=== PATIENT | male | born 1960 | race Caucasian/White ===

== ENCOUNTER → 2020-07-07 10:38 | Outpatient (BNVA) | payer BC, SELFPAY | PROVIDERS: Visit Provider Orthopaedic Surgery | DX: M17.12 Unilateral primary osteoarthritis, left knee (principal) | CPT/HCPCS: 20610; J1040 ==

== ENCOUNTER → 2020-07-21 10:44 | Outpatient (BNVA) | payer BC, SELFPAY | PROVIDERS: PCP Internal Medicine; Visit Provider Orthopaedic Surgery | DX: M19.011 Primary osteoarthritis, right shoulder (principal); M17.11 Unilateral primary osteoarthritis, right knee | CPT/HCPCS: 20610; J1040 ==

== ENCOUNTER 2020-09-28 07:04 | Outpatient (REF) | payer BC, SELFPAY ==
[2020-09-28 11:24] LABS: MANUAL DIFF FLAG NO
[2020-09-28 11:42] LABS: Basophils Percent Auto 0.3 % (0-2); Eosinophils Absolute Auto 0.1 X10*3/uL (0.0-0.4); Eosinophils Percent Auto 1.7 % (0-4); Hematocrit 40.5 % (42-52); Hemoglobin 13.7 g/dl (14.0-18.0); Imm Gran Abs Auto 0.01 X10*3/uL (0.00-0.03); Imm Gran Pct Auto 0.3 % (0.0-0.4); Lymphocytes Absolute Auto 0.8 X10*3/uL (1.2-4.9); Lymphocytes Percent Auto 22.1 % (20-40); Mean Corpuscular HGB Conc 33.8 g/dl (31.0-36.0); Mean Corpuscular Hemoglobin 32.8 pg (27.0-33.0); Mean Corpuscular Volume 96.9 fL (80-98); Mean Platelet Volume 9.6 fL (9.4-12.4); Monocytes Absolute Auto 0.6 X10*3/uL (0.1-1.2); Neutrophils Absolute Auto 2.1 X10*3/uL (2.0-8.3); Neutrophils Percent Auto 58.6 % (45-73); Platelet Count 166 X10*3/uL (160-400); Red Blood Count 4.18 X10*6/uL (4.60-5.80); Red Cell Distribution Width 12.9 % (11.0-16.0); White Blood Count 3.5 X10*3/uL (4.8-10.8)
[2020-09-28 12:01] LABS: Alanine Aminotransferase 90 U/L (0-40); Albumin Level 4.5 g/dL (3.5-5.0); Alkaline Phosphatase 100 U/L (39-117); Anion Gap 18 (12-20); Aspartate Amino Transferase 89 U/L (5-37); Bilirubin Total 0.8 mg/dL (0.0-1.0); Blood Urea Nitrogen 13 mg/dL (9-16); Calcium 9.7 mg/dL (8.4-10.2); Carbon Dioxide 28 mmol/L (22-29); Chloride 94 mmol/L (96-108); Cholesterol 196 mg/dL; Estimated Glomerular Filt Rate > 60; Glucose Fasting 85 mg/dL (60-99); HDL Cholesterol 113 mg/dL; LDL Cholesterol Calculated 68 mg/dl; Potassium 3.6 mmol/L (3.3-5.1); Sodium 136 mmol/L (135-145); Total Protein 7.4 g/dL (6.5-8.0); Triglycerides 77 mg/dL
== END 2020-09-28 07:05 | disposition home or self-care (01) ==
LOC: HO.HMGCLDS 07:04
PROVIDERS: PCP Internal Medicine; Visit Provider Internal Medicine
DX: I10 Essential (primary) hypertension (principal); E78.00 Pure hypercholesterolemia, unspecified
CPT/HCPCS: 36415; 80053; 80061; 85025

== ENCOUNTER → 2020-10-13 15:19 | Outpatient (BNVA) | payer BC, SELFPAY | PROVIDERS: PCP Internal Medicine; Visit Provider Internal Medicine ==

== ENCOUNTER 2021-07-13 06:50 | Outpatient (REF) | payer BC, SELFPAY ==
[2021-07-13 11:21] LABS: MANUAL DIFF FLAG NO
[2021-07-13 11:32] LABS: Basophils Percent Auto 0.6 % (0-2); Eosinophils Absolute Auto 0.2 X10*3/uL (0.0-0.4); Eosinophils Percent Auto 3.2 % (0-4); Hematocrit 44.2 % (42.0-52.0); Hemoglobin 15.1 g/dl (14.0-18.0); Imm Gran Abs Auto 0.01 X10*3/uL (0.00-0.03); Imm Gran Pct Auto 0.2 % (0.0-0.4); Lymphocytes Absolute Auto 1.4 X10*3/uL (1.2-4.9); Lymphocytes Percent Auto 25.8 % (20-40); Mean Corpuscular HGB Conc 34.2 g/dl (31.0-36.0); Mean Corpuscular Volume 96.5 fL (80.0-98.0); Mean Platelet Volume 9.3 fL (9.4-12.4); Monocytes Absolute Auto 0.6 X10*3/uL (0.1-1.2); Monocytes Percent Auto 11.6 % (2-11); Neutrophils Absolute Auto 3.1 x10*3/uL (2.0-8.3); Neutrophils Percent Auto 58.6 % (45-73); Platelet Count 219 X10*3/uL (160-400); Red Blood Count 4.58 X10*6/uL (4.60-5.80); Red Cell Distribution Width 12.2 % (11.0-16.0); White Blood Count 5.3 X10*3/uL (4.8-10.8)
[2021-07-13 11:55] LABS: Alanine Aminotransferase 40 U/L (0-40); Albumin Level 4.7 g/dL (3.5-5.0); Alkaline Phosphatase 71 U/L (39-117); Anion Gap 17 (12-20); Aspartate Amino Transferase 38 U/L (5-37); Blood Urea Nitrogen 12 mg/dL (9-16); Calcium 10.2 mg/dL (8.4-10.2); Carbon Dioxide 29 mmol/L (22-29); Chloride 93 mmol/L (96-108); Cholesterol 235 mg/dL; Estimated Glomerular Filt Rate > 60; Glucose Fasting 93 mg/dL (60-99); HDL Cholesterol 120 mg/dL; LDL Cholesterol Calculated 92 mg/dl; Potassium 4.1 mmol/L (3.3-5.1); Sodium 135 mmol/L (135-145); Total Protein 7.8 g/dL (6.5-8.0); Triglycerides 116 mg/dL
[2021-07-13 12:16] LABS: PSA,Total (Free>4and<10) 1.83 ng/mL (0.00-4.00); Vitamin D 25-OH Total 22.7 ng/mL (>30)
== END 2021-07-13 06:51 | disposition home or self-care (01) ==
LOC: HO.HMGCLDS 06:50
PROVIDERS: PCP Internal Medicine; Visit Provider Internal Medicine
DX: Z00.00 Encounter for general adult medical examination without abnormal findings (principal); I10 Essential (primary) hypertension; E78.00 Pure hypercholesterolemia, unspecified; J45.30 Mild persistent asthma, uncomplicated; R35.0 Frequency of micturition
CPT/HCPCS: 36415; 80053; 80061; 82306; 84153; 84443; 85025

== ENCOUNTER → 2021-07-28 10:47 | Outpatient (BNVA) | payer BC, SELFPAY | PROVIDERS: PCP Internal Medicine; Visit Provider Internal Medicine ==

== ENCOUNTER 2021-08-02 11:47 | Outpatient (REF) | payer BC, SELFPAY ==
[2021-08-02 13:59] LABS: Appearance Urine CLEAR; Color Urine YELLOW; Glucose Urine UA NEG (NEG); Leukocyte Esterase Urine NEG (NEG); Nitrite Urine NEG (NEG); Specific Gravity - Urine <= 1.005 (1.005-1.025); Urine Blood NEG (NEG); Urine Ketones NEG (NEG); Urine Protein NEG (NEG-TRACE)
[2021-08-02 14:12] LABS: RBC Urine 0 /HPF (0); WBC Urine 0 /HPF (0-4)
== END 2021-08-02 11:48 | disposition home or self-care (01) ==
LOC: HO.HMGCLNP 11:47
PROVIDERS: PCP Internal Medicine; Visit Provider Internal Medicine
DX: Z00.00 Encounter for general adult medical examination without abnormal findings (principal); R35.0 Frequency of micturition; J45.30 Mild persistent asthma, uncomplicated; I10 Essential (primary) hypertension; E78.00 Pure hypercholesterolemia, unspecified
CPT/HCPCS: 81001

== ENCOUNTER 2021-08-10 09:18 | Outpatient (REF) | payer BC, SELFPAY ==
--- NOTE | 2021-08-10 11:42 | MHC.AU.ANO ---
Adult Audiological Evaluation Date of Visit: 08/10/21 Reason for Appointment: Patient has been noticing gradually increasing hearing difficulty. He has trouble understanding speech in the presence of background noise or if the person talking is not close. He was first told he had hearing loss around [address] Yeung's office. He feels the hearing loss is now starting to impact his daily life. He also experiences intermittent, but frequent, tinnitus. History of occupational noise exposure. Does patient feel they have a hearing loss?: Yes If Yes, Which Ear?: Both Ears Has hearing been tested previously?: Yes Previous Hearing Test Results: Approximately [address] Yeung's office. Results were not available for immediate review. Ear History: Ear Deformity: None Reported Recent Ear Drainage: None Reported Recent Ear Pain: None Reported Family History of Hearing Loss?: Yes: Father Recent Ear Infections: None Reported Ear Infections in Childhood: None Reported History of Ear Wax Buildup: None Reported Previous Ear Surgery: None Reported Bothersome Tinnitus/Ringing/Noises in Ears: Both Ears Ear used on the phone: Left Ear Blocked/Full Sensation in Ear(s): None Reported History of occupational noise exposure?: Yes: Spout Tender History: No Medical History: Medical History: Asthma, COPD, Osteoarthritis, Seasonal Allergies, Hypertension Otoscopy: Right Ear: Unremarkable Left Ear: Unremarkable Tympanometry: Right Ear: Could Not Obtain Seal Left Ear: Could Not Obtain Seal Hearing Evaluation: Transducer(s) Used: Insert Earphones Method: Conventional Audiometry Stimuli Used: Pure Tones Right Ear: Description of Hearing: Mild rising to normal and sloping to moderately-severe sensorineural hearing loss Left Ear: Description of Hearing: Mild rising to normal and sloping to moderately-severe sensorineural hearing loss Speech Recognition Threshold (SRT): Method Used: Recorded Lists Stimuli Used: Spondee Words Right Ear: 20 dBHL Left Ear: 20 dBHL Word Discrimination: Method: Recorded Lists Word Lists Used: W-22 Right Ear: 96% at 65 dBHL Left Ear: 96% at 65 dBHL Most Comfortable Level (MCL): Right Ear: 65 dBHL Left Ear: 65 dBHL QuickSIN: Tested binaurally at 65 dBHL: Score of 8 dB SNR Loss, which suggests moderately-elevated difficulty understanding speech in noise. Recommendations: Audiological re-evaluation in one year. A brief hearing aid demo was performed in-office with a pair of ReSound One RICs. Patient could notice an improvement in speech understanding and clarity with the instruments. He feels he may be ready for hearing aids. Patient plans to first contact his insurance to determine if there is a hearing aid benefit, and if so, inquire about participating clinics. If his insurance does not have a hearing aid benefit, he is encouraged to contact [facility] ([facility]) to determine if he may qualify for assistance. Diagnosis: Primary Diagnosis: H90.3 Bilateral Sensorineural Hearing Loss Signature: Provider: Anusha Issa, CCC-A
== END 2021-08-10 09:19 | disposition home or self-care (01) ==
LOC: HO.SH 09:18
PROVIDERS: Visit Provider Internal Medicine
DX: H90.3 Sensorineural hearing loss, bilateral (principal)
CPT/HCPCS: 92557; 92567

== ENCOUNTER 2021-08-16 11:35 | Outpatient (REF) | payer BC, SELFPAY ==
--- NOTE | ~2021-08-16 | XR_ITS ---
EXAMINATION: XR SHOULDER, LEFT CLINICAL INFORMATION: Left shoulder pain, limited range of motion. COMPARISON: Left shoulder radiographs dated 09/28/2010. TECHNIQUE: AP external rotation, Grashey, scapular Y, and axillary views of the left shoulder. FINDINGS: Mild to moderate left glenohumeral and acromioclavicular degenerative joint changes are seen. There is no acute fracture or dislocation. The left ribs are intact. The soft tissues are unremarkable. XR/XR shoulder LT min 2V IMPRESSION: Mild to moderate left shoulder degenerative joint changes. No acute fracture. This represents interval worsening from the 2011 study.
--- NOTE | ~2021-08-16 | XR_ITS ---
EXAMINATION: XR SHOULDER, RIGHT CLINICAL INFORMATION: Right shoulder pain, limited range of motion COMPARISON: 07/16/2019 right shoulder radiographs. TECHNIQUE: AP external rotation, Grashey, scapular Y, and axillary views of the right shoulder. FINDINGS: Mild to moderate right glenohumeral and acromioclavicular degenerative joint changes are seen. There is no acute fracture or dislocation. The soft tissues are unremarkable. XR/XR shoulder RT min 2V IMPRESSION: Mild to moderate right shoulder degenerative joint changes without acute abnormality. These findings are similar to the 2019 study.
== END 2021-08-16 11:36 | disposition home or self-care (01) ==
LOC: HO.HMGCX 11:35
PROVIDERS: PCP Internal Medicine; Visit Provider Physical Medicine & Rehabilitation
DX: M25.511 Pain in right shoulder (principal); M25.512 Pain in left shoulder
CPT/HCPCS: 73030

== ENCOUNTER → 2021-09-28 09:28 | Outpatient (BNVA) | payer BC, SELFPAY | PROVIDERS: PCP Internal Medicine; Visit Provider Internal Medicine ==

== ENCOUNTER → 2022-12-11 15:53 | Outpatient (BNVA) | payer BC, SELFPAY | PROVIDERS: PCP Internal Medicine; Visit Provider Internal Medicine ==

== ENCOUNTER 2023-03-31 10:05 | Emergency (ER) | payer BC, SELFPAY ==
--- NOTE | ~2023-03-31 | XR_ITS ---
EXAMINATION:XR ankle RT min 3V CLINICAL INFORMATION: Pain COMPARISON: None TECHNIQUE: AP, lateral, and mortise views of the ankle. FINDINGS: There is narrowing of joint space medially along with sclerotic changes of articular surfaces suggest degenerative osteoarthritis. No fracture. There is soft tissue swelling especially around the lateral malleolus. There is inferior calcaneal spur. Degenerative osteoarthritis of the subtalar joint. Heavy vascular calcification. Posterior tibial artery. XR/XR ankle RT min 3V IMPRESSION: Degenerative osteoarthritis. No fracture or dislocation. Soft tissue swelling. Small inferior calcaneal spur. Vascular calcifications.
[2023-03-31 10:06] VITALS: BP 151/94; PULSE 88; RESP 18; TEMP 36.6; O2SAT 97; BMI 33.9
--- NOTE | 2023-03-31 11:24 | ED_ITS ---
HPI - General Adult General Chief complaint: Extremity Injury, Lower Stated complaint: R ankle pain Time Seen by Provider: 03/31/23 10:46 Source: patient Mode of arrival: ambulatory Limitations: no limitations History of Present Illness HPI narrative: Patient is a 62-year-old male presenting to the emergency department with 9-10 months of right ankle pain swelling. Patient reports that he was ambulating 1 day when he felt a popping sensation and felt the pain and swelling at that time. He denies any fall or other trauma. He denies any recent worsening of his pain or swelling. States that he has an upcoming appointment with orthopedics and they a told him that he required an x-ray prior to his appointment. He denies any numbness or tingling to foot. States pain is worst at the end of the day after work. MD complaint: Right ankle pain Onset (ago): month(s) Location: lower extremity Radiation: non-radiation Severity: moderate Quality: aching Pain Consistency: constant and colicky Relieving factors: rest Exacerbating factors: movement Associated symptoms: denies other symptoms Treatments prior to arrival: NSAID and cold therapy Related Data Home Medications Medication Instructions Recorded Confirmed allopurinol 300 mg tablet 150 mg PO DAILY 07/06/20 atorvastatin 10 mg tablet 10 mg PO BEDTIME 07/06/20 losartan 100 mg tablet 100 mg PO DAILY 07/06/20 verapamil 180 mg 24 hr 180 mg PO DAILY 07/06/20 capsule,extended release hydrochlorothiazide 25 mg tablet 25 mg PO DAILY 10/13/20 brimonidine 0.15 % eye drops 0 drp ophthalmic (eye) 07/28/21 ibuprofen 800 mg tablet 800 mg PO BID PRN 07/28/21 oxycodone 5 mg tablet 5 mg PO BID PRN 07/28/21 Previous Rx's Medication Instructions Recorded albuterol sulfate 90 mcg/actuation 2 puff inhalation Q4-6H PRN 09/16/21 aerosol inhaler (ProAir HFA) shortness of breath or wheezing #1 ea mometasone-formoterol HFA 100 2 puff PO BID for asthma #13 grams 01/04/23 mcg-5 mcg/actuation aerosol inhaler (Dulera) montelukast 10 mg tablet 10 mg PO DAILY #30 tabs 01/04/23 Allergies Allergy/AdvReac Type Severity Reaction Status Date / Time penicillin V Allergy Unknown unknown Verified 03/31/23 10:11 adhesive Allergy Unknown rash Uncoded 12/11/22 16:16 LATEX Allergy Unknown severe rash Uncoded 12/11/22 16:16 Review of Systems Review of Systems: As per HPI Yes all other systems are reviewed and are negative Constitutional: Constitutional: Reports as per HPI [facility] Past Medical History Medical History Asthma COPD (chronic obstructive pulmonary disease) CPAP (continuous positive airway pressure) dependence Hypertension Obesity (BMI 30.0-34.9) Obstructive sleep apnea MIGUEL on CPAP Primary osteoarthritis of right knee Primary osteoarthritis of right shoulder Rotator cuff impingement syndrome of right shoulder Varicose vein of leg Family History Family History Mother No problems noted. Father No problems noted. Social History Social History Patient Tobacco Use Status: Former Tobacco user Advance Directives: No Advance Directives Information Provided: No Current occupational status: employed Current occupation: Client Support Analyst - Right Handed Physical Exam ED Vital Signs: Vital Signs - 24 hr 03/31/23 10:06 Temperature 97.8 F Pulse Rate 88 Respiratory Rate 18 Blood Pressure 151/94 H Pulse Oximetry 97 Oxygen Delivery Method Room Air BMI result Body Mass Index 33.9 Vital signs have been reviewed and appear to be correct. Blood pressure elevated. Heart rate normal. Respiratory rate normal. Temperature normal. Oxygen saturation normal. Const General: cooperative, healthy appearing and no acute distress Orientation/consciousness: oriented to person, oriented to place, oriented to time and patient oriented x3 Limitations: no limitations [facility] Head: Yes normocephalic and Yes atraumatic Ears: external ears normal General nose exam: Normal external nose present Face and sinus: Yes face symmetric Mouth: oropharynx normal and moist mucous membranes Throat: Yes uvula midline Eyes Pupils: Equal, round and reactive pupils present Neck Neck: Yes normal visual inspection and Yes supple Resp Effort & Inspection: normal respiratory effort and able to speak in complete sentences Auscultation: clear to auscultation bilaterally Cardio Rate: regular rate Rhythm: regular rhythm Heart sounds: S1 normal heart sound present and S2 normal heart sound present GI Palpation (GI): Soft to palpation and nontender Auscultation: normoactive bowel sounds General: Yes no CVA tenderness Back/Spine/Pelvis Back: no CVA tenderness Skin General skin exam: elasticity normal and turgor normal Neuro General: oriented to person, oriented to place, oriented to time, patient oriented x3, gait normal, tone normal, moves all extremities, Normal light touch and pain sensation, no focal motor deficits, CN's II-XI intact bilaterally, normal sensation to monofilament and deep tendon reflexes 2+ bilaterally Cranial nerves: Yes Equal, round and reactive pupils present Cognition (Neuro): normal cognition Extrem General: Yes full ROM, Yes normal exam except as noted, Yes no pedal edema and Yes no calf tenderness Left lower extremity: ankle Details: tenderness Location: of the lateral malleolus, swelling Details: laterally and normal ROM; no warmth, no ecchymosis and no crepitus and foot Details: toes with normal ROM and vascular exam Details: dorsalis pedis pulse present, posterior tibial pulse present and normal capillary refill Psych Mental Status: mental status grossly normal Affect: normal affect Thought process: Normal thought process present Medical Decision Making Medical Decision Making MDM Narrative: Patient is a 62-year-old male presenting to the emergency department with 9-10 months of right ankle pain swelling. On exam patient is awake, A+Ox3, VS WNL, afebrile, normal neurological exam without focal deficits, right lateral ankle swelling and tenderness, no ecchymosis, full ROM, 2+ PT and DP pulses. Given reported symptoms and physical exam findings, initial differential includes right ankle strain, sprain, fracture, arthritis. X-ray notable for no acute fracture, degenerative osteoarthritis on articular surfaces. My interpretation is in agreement with the radiologist's interpretation. X-ray results discussed with patient and , all questions answered. Will provide air stirrup for support until patient is able to follow-up with orthopedics. Return precautions discussed at bedside. Advised patient to keep foot elevated while at rest, apply ice for 10-15 minutes at a time several times daily, alternate Tylenol and ibuprofen as needed. Patient and verbalized understanding of and agreement with plan. Differential Diagnosis Differential Diagnoses: The differential diagnosis associated with the presentation includes As per MDM. Independent Interpretation I performed an independent interpretation of an: Plain X-Ray Interpretation: No acute fracture, degenerative osteoarthritis Radiology Impression Discussion of test interpretation with radiology: I have reviewed the radiologist's reading. Radiologist Impression: XR/XR ankle RT min 3V IMPRESSION: Degenerative osteoarthritis. ? No fracture or dislocation. ? Soft tissue swelling. ? Small inferior calcaneal spur. ? Vascular calcifications. Independent Historian Clinical information obtained from an independent historian. History obtained from or confirmed by: Spouse External Record Review External record reviewed: Inpatient record, Office record and Outpatient record Discharge Plan Discharge Clinical Impression: Pain in right ankle Patient Disposition: Home, Self-Care Prescriptions: No Action albuterol sulfate [ProAir HFA] 90 mcg/actuation HFA aerosol inhaler 2 puff inhalation Q4-6H PRN (Reason: shortness of breath or wheezing) Qty: 1 0RF Dulera 100-5 mcg/actuation HFA aerosol inhaler 2 puff PO BID Qty: 13 3RF montelukast 10 mg tablet 10 mg PO DAILY Qty: 30 0RF atorvastatin 10 mg tablet 10 mg PO BEDTIME verapamil 180 mg capsule,ext rel. pellets 24 hr 180 mg PO DAILY allopurinol 300 mg tablet 150 mg PO DAILY losartan 100 mg tablet 100 mg PO DAILY hydrochlorothiazide 25 mg tablet 25 mg PO DAILY oxycodone 5 mg tablet 5 mg PO BID PRN ibuprofen 800 mg tablet 800 mg PO BID PRN brimonidine 0.15 % drops 0 drp ophthalmic (eye) Referrals: [facility] Orthopedic Surgeons [Provider Group]
== END 2023-03-31 12:21 | disposition home or self-care (01) ==
PROVIDERS: Emergency Provider Student in an Organized Health Care Education/Training Program; PCP Internal Medicine
DX: M25.571 Pain in right ankle and joints of right foot (principal); Z79.899 Other long term (current) drug therapy
CPT/HCPCS: 73610; 99283

== ENCOUNTER 2023-05-12 10:44 | Outpatient (REF) | payer BC, SELFPAY ==
--- NOTE | ~2023-05-12 | XR_ITS ---
EXAMINATION: XR LUMBOSACRAL SPINE BENDING FILMS ONLY CLINICAL INFORMATION: Low back pain, instability. COMPARISON: CT abdomen and pelvis of 05/02/2018. TECHNIQUE: Flexion and extension views of the lumbar spine laterally. FINDINGS: There is significant disc space narrowing seen at the L4-L5 and L5-S1 disc space levels. There is a grade 1 spondylolisthesis of L4 anterior to L5 which on flexion-extension views changes by approximately 2 mm. There are stable mild grade 1 spondylolistheses seen at the L1-L2, L2-L3, and L3-L4 disc space levels. There appears to be multilevel facet arthropathy present with anterior marginal spurring including bridging of the lower thoracic spine and L1. XR/XR lumbar spine bending only IMPRESSION: Multilevel degenerative disc disease and facet arthropathy. Mild grade 1 spondylolisthesis of L4-L5 with approximately 2 mm of motion between flexion and extension views. Mild grade 1 spondylolistheses which appears stable of [id number] L4.
== END 2023-05-12 10:45 | disposition home or self-care (01) ==
LOC: HO.HMGCX 10:44
PROVIDERS: PCP Internal Medicine; Visit Provider Physical Medicine & Rehabilitation
DX: M43.16 Spondylolisthesis, lumbar region (principal)
CPT/HCPCS: 72120

== ENCOUNTER 2023-06-20 13:57 | Outpatient (REF) | payer BC, SELFPAY ==
--- NOTE | ~2023-06-20 | XR_ITS ---
EXAMINATION: XR LUMBOSACRAL SPINE WITH OBLIQUES CLINICAL INFORMATION: Spinal stenosis lumbar region with neurogenic claudication. COMPARISON: 05/12/2023 lumbar spine. TECHNIQUE: 4 views of the lumbar spine. FINDINGS: Degenerative changes in the imaged lower thoracic spine. Surgical clips in the right upper quadrant of the abdomen. Facet arthritis in the mid to lower lumbar spine. Advanced multilevel degenerative changes in the lumbar spine with multilevel hypertrophic change and loss of disc space height most notable at L4-L5 and L5-S1. Grade 1 anterolisthesis of L4 on L5 with flexion decreases with extension. Grade 1 retrolisthesis of L1 on L2 and of L2 on L3. XR/XR lumbar spine 4V min IMPRESSION: Advanced multilevel degenerative changes in the lumbar spine.
== END 2023-06-20 13:58 | disposition home or self-care (01) ==
LOC: HO.HOSX 13:57
PROVIDERS: PCP Internal Medicine; Visit Provider Neurological Surgery
DX: M48.062 Spinal stenosis, lumbar region with neurogenic claudication (principal)
CPT/HCPCS: 72110

== ENCOUNTER 2023-06-20 13:57 | Outpatient (AMB) | payer BC, SELFPAY ==
--- NOTE | 2023-06-20 14:01 | HO.SPINEOV ---
Intake Intake Visit Reasons: Low back pain Intake Note: Mr. Barraza is here today c/o back pain. MRI done @ [facility]/brought disc. Compliance Quality Performance Analyst Required: No Allergies penicillin V Allergy (Unknown, Verified 03/31/23 10:11) unknown adhesive Allergy (Unknown, Uncoded 12/11/22 16:16) rash LATEX Allergy (Unknown, Uncoded 12/11/22 16:16) severe rash Assessment & Plan Assessment & Plan (1) Lumbar stenosis with neurogenic claudication: Code(s): M48.062 - Spinal stenosis, lumbar region with neurogenic claudication Plan: Dear colleague Thank you for referring Eduar Barraza to the office today with a chief complaint of left buttock pain. 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 The symptom is so severe that he can hardly walk or stand. He constantly has to sit down. The pain interferes with his job requirements. He denies weakness or numbness. He has mild symptoms on the right side. Initially, steroid injections were helpful but most recently they are not working anymore. The patient was referred for surgical consultation for neurogenic claudication. The following conservative treatment options were tried without success antiinflammatories, tylenol, physical therapy, cortisone shots PMH: Asthma, hypertension, gout, hypercholesterolemia, sleep apnea, glaucoma, cholecystectomy, umbilical hernia repair, left eye surgery Medications: Losartan potassium 100 mg, montelukast, verapamil, hydrochlorothiazide, allopurinol, atorvastatin, ibuprofen, do Giovana, oxycodone 5 mg, brimonidine Allergies: Penicillin and latex Social history: . Nonsmoker Physical Exam: Pleasant male who is able to reduce his symptoms by short period of standing in the office. The pain is located in the left buttock. Sitting down relieves his symptoms. No motor or sensory deficits. Straight leg raise is negative. Radiological Studies: MRI done at [facility] on 01/13/2023 shows a grade 1 L4-5 lumbar spondylolisthesis, hyperintensity of the facet joints and moderate to severe spinal stenosis and lateral recess stenosis compressing the exiting L5 nerve roots. In addition, there is severe left L5 foraminal stenosis. There is significant L5-S1 disc degeneration with a central disc bulge not compressing any nerve roots. Flexion-extension x-rays done today shows again the grade 1L4-5 spondylolisthesis without instability. Impression/Plan: This patient is suffering from a predominantly unilateral (left) neurogenic claudication do too much severe L4-5 spinal stenosis and lateral recess stenosis. There is an associated spondylolisthesis which is stable on flexion-extension x-rays. The MRI is suspicious for instability with the hyperintensity of the facet joints on T2, however the patient denies back pain. Therefore, I offered him a left L5 hemilaminotomy and foraminotomy during which I will also be able to decompress the contralateral side. I described the procedure and possible complications. He wants to proceed. He is tentatively scheduled for 08/30/2023. He is going to visit his [employer] scout in July for preoperative clearance. Thank you for allowing me to participate in your patients care. total time spent was 50 minutes in counseling ,coordination of plan, personal review of imaging, surgical decision making and subsequent plan Jatin Saavedra MD, PhD Spine Fellowship Trained Neurosurgeon Director, [facility] Orders: Orders XR lumbar spine 4V min Today M48.062 - Spinal stenosis, lumbar region with neurogenic claudication Coding Level of Care Code New Pt Level 4 (12829) Diagnoses Lumbar stenosis with neurogenic claudication M48.062
== END 2023-06-20 15:00 | disposition home or self-care (01) ==
PROVIDERS: PCP Internal Medicine; Visit Provider Neurological Surgery
DX: M48.062 Spinal stenosis, lumbar region with neurogenic claudication (principal)
CPT/HCPCS: 99204

== ENCOUNTER 2023-07-26 10:30 | Outpatient (AMB) | payer BC, SELFPAY ==
[2023-07-26 10:36] VITALS: BP 120/74; PULSE 100; O2SAT 97; BMI 33.4
--- NOTE | 2023-07-26 10:36 | A.OFFVIS_ITS ---
Intake Vital Signs 07/26/23 10:36 Height 5 ft 10 in Weight 233 lb 0.6 oz BMI 33.4 BP 120/74 Blood Pressure Location Lt brachial Position Sitting Pulse 100 Pulse Source Pulse Oximeter Pulse Oximetry (%) 97 Oxygen Delivery Method Room Air Intake Visit Reasons: pre-op clearance for back sx Intake Note: pre-op clearance for back surgery 08/30/23. [facility]. cleaning up the area around the nerve. Eeg Tech Required: No Allergies penicillin V Allergy (Unknown, Verified 07/26/23 10:51) unknown adhesive Allergy (Unknown, Uncoded 07/26/23 10:51) rash LATEX Allergy (Unknown, Uncoded 07/26/23 10:51) severe rash Medication List - Last Reconciled 07/26/23 by Asha Horn MD albuterol sulfate 90 mcg/actuation (ProAir HFA) 2 puffs inhalation Q4-6H PRN allopurinol 150 mg PO DAILY atorvastatin 10 mg PO BEDTIME brimonidine 0.15% 0 drps ophthalmic (eye) hydrochlorothiazide 25 mg PO DAILY ibuprofen 800 mg PO BID PRN latanoprost 0.005% drps ophthalmic (eye) losartan 100 mg PO DAILY mometasone-formoterol 100-5 mcg/actuation (Dulera) 2 puffs PO BID montelukast 10 mg PO DAILY oxycodone 5 mg PO BID PRN verapamil ER 180 mg PO DAILY Do you need a note to return to daycare/school/sports/work: No HPI pre-op clearance for back sx HPI Details THIS 62 YEARS OLD GENTLEMAN WITH MODERATE OBESITY, ROUND FACE, AND ESTABLISH DIAGNOSIS OF OBSTRUCTIVE SLEEP APNEA, ALSO WITH DIAGNOSIS OF BRONCHIAL ASTHMA. IS HERE FOR 6 MONTHS FOLLOW-UP. HE ALSO NEEDS CLEARANCE FOR HIS BACK SURGERY. BREATHING HAS BEEN VERY WELL CONTROLLED. HE USES DULERA 100-5 2 PUFFS B.I.D. BUT MOST OF THE TIME ONLY ONCE A DAY. HE HAS HARDLY NEEDED TO USE. THE RESCUE INHALER HAS MILD INTERMITTENT NASAL CONGESTION , BUT DOES NOT. HAVE TO USE ANTIHISTAMINICS HE USES CPAP REGULARLY EVERY NIGHT AND SLEEPS VERY GOOD. NEW CPAP DEVICE IS WORKING VERY WELL AND HE IS VERY COMFORTABLE WITH THAT. HE DENIES ANY DAYTIME SLEEPINESS. [facility] Medical History COPD (chronic obstructive pulmonary disease) Asthma MIGUEL on CPAP Obesity (BMI 30.0-34.9) CPAP (continuous positive airway pressure) dependence Obstructive sleep apnea Primary osteoarthritis of right shoulder Rotator cuff impingement syndrome of right shoulder Primary osteoarthritis of right knee Varicose vein of leg Hypertension Family History Mother No problems noted. Father No problems noted. 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 Review of Systems Const All systems reviewed & are unremarkable except as noted in HPI and below Eyes Reports no additional complaints ENT Reports nasal congestion (Off and on) Card Denies chest pain, Denies irregular heart rhythm, Denies leg edema and Reports dyspnea (Mild on walking up hill) Resp Reports dyspnea (Mild on walking up hill) GI Reports no additional complaints Reports no additional complaints Musc Reports no additional complaints Skin/Breast Reports system reviewed and no additional complaints, except as documented Neuro Reports no additional complaints Psych Reports no additional complaints Physical Exam Vital Signs: Last Vital Signs Pulse 100 07/26/23 10:36 BP 120/74 07/26/23 10:36 Pulse Ox 97 07/26/23 10:36 Oxygen Delivery Method Room Air 07/26/23 10:36 BMI result Body Mass Index 33.4 Const General: healthy appearing (Except for being overweight), comfortable, no acute distress, alert and awake Orientation/consciousness: patient oriented x3 HEENT Head: Yes normal to inspection General nose exam: No nasal polyps present and No nasal discharge present Face and sinus: Yes sinuses nontender Mouth: oropharynx normal Throat: Yes posterior oropharynx normal Eyes General: appearance normal, both eyes and all related structures Neck Neck: Yes normal visual inspection, Yes no lymphadenopathy, Yes trachea midline and Yes no JVD Thyroid: Thyroid normal Chest Chest palpation & inspection: normal inspection of the chest, normal palpation of entire chest wall and no tenderness Resp Other: Percussion note resonant on both sides, breath sounds are equal on both sides with slight prolongation of the expiratory phase. No wheezes rhonchi or Creps are heard today. Cardio Palpation: normal PMI Rate: regular rate Rhythm: regular rhythm Heart sounds: no gallops and no murmurs Peripheral pulses: Peripheral pulses 2+ throughout GI Palpation (GI): Soft to palpation, nontender, No hepatosplenomegaly present and no masses Auscultation: normal bowel sounds Back/Spine/Pelvis Thoracic/Lumbar Spine: thoracic and lumbar spine normal to inspection Skin General skin exam: no rashes or lesions noted Neuro General: patient oriented x3 and no focal motor deficits Cranial nerves: Yes CN's II-XII intact bilaterally Extrem General: Yes normal to inspection, Yes no clubbing, cyanosis or edema and Yes no calf tenderness Psych Appearance: grossly normal and well kempt Speech and movement: Normal speech and movement present Office Procedures Spirometry Testing Spirometry Comments: Spirometry done in the office, Dr. Horn has the results results scanned to his chart. 38350- Spirometry Results Reviewed Results Reviewed: COMPLIANCE REPORT FOR THE LAST 30 NIGHTS REVIEWED HIS COMPLIANCE IS 100%, AVERAGE NIGHTLY USE IS 8 HOURS 12 MINUTES. AIR LEAK MAXIMUM 78 L/MINUTE, RESIDUAL AHI 0.3 SPIROMETRY FVC 90% FEV1 68% FEV1/FVC 58 FEF 25-75 40% C/W MODERATELY SEVERE OBSTRUCTIVE AIRWAY DISORDER Assessment & Plan Assessment & Plan (1) Obesity (BMI 30.0-34.9): Comment: He is moderately obese, trying to control his weight. ADVISED TO WATCH DIET ,LOW CARBS AND WALK DAILY . Code(s): E66.9 - Obesity, unspecified Plan: as above (2) MIGUEL on CPAP: Comment: He is a known case of obstructive sleep apnea and is well treated with the use of CPAP. He is very compliant and benefitting. Code(s): G47.33 - Obstructive sleep apnea (adult) (pediatric); Z99.89 - Dependence on other enabling machines and devices Plan: His compliance is 100%. Commended for good compliance. There is a slight air leak during the night, he is advised to keep. The straps tightened He is happy. with the new CPAP machine (3) COPD (chronic obstructive pulmonary disease): Comment: THIS GENTLEMAN HAS LONG-STANDING HISTORY OF BRONCHIAL ASTHMA, WHICH HAS NOW PHASED INTO COPD. HE IS A NONSMOKER BUT HAS BEEN EXPOSED TO SECOND HAND SMOKING. CURRENTLY IT IS WELL CONTROLLED , HE IS USING DULERA 2 PUFFS USUALLY IN THE MORNING. AND HARDLY NEEDS TO USE THE RESCUE INHALER. REGIMEN IS WORKING WELL AND HIS BREATHING HAS ACTUALLY IMPROVED. Code(s): J44.9 - Chronic obstructive pulmonary disease, unspecified Plan: ADVISED TO CONTINUE USING: DULERA 100-5 2 PUFFS B.I.D. IF SYMPTOMS ARE WELL CONTROLLED MAY USE IT ONLY ONCE A DAY IN THE MORNING. MONTELUKAST 10 MG DAILY AND PROAIR 2 PUFFS Q 4-6 HOURS ONLY P.R.N. Plan PREOP CLEARANCE FOR BACK SURGERY. NO CONTRAINDICATION NOTED AVERAGE SURGICAL RISK Orders: Orders AMB Spirometry Testing Today J44.9 - Chronic obstructive pulmonary disease, unspecified Coding Level of Care Code Est Pt Level 4 (01308) Diagnoses Obesity (BMI 30.0-34.9) E66.9 MIGUEL on CPAP G47.33; Z99.89 COPD (chronic obstructive pulmonary disease) J44.9 CPT Codes Spirometry - CPT: 64645- Spirometry ([id number])
== END 2023-07-26 11:05 | disposition home or self-care (01) ==
PROVIDERS: PCP Internal Medicine; Visit Provider Internal Medicine
DX: E66.9 Obesity, unspecified (principal); G47.33 Obstructive sleep apnea (adult) (pediatric); Z99.89 Dependence on other enabling machines and devices; J44.9 Chronic obstructive pulmonary disease, unspecified
CPT/HCPCS: 94010; 99214

== ENCOUNTER → 2023-07-26 10:30 | Outpatient (BNVA) | payer BC, SELFPAY | PROVIDERS: PCP Internal Medicine; Visit Provider Internal Medicine | DX: Z01.811 Encounter for preprocedural respiratory examination (principal); J44.9 Chronic obstructive pulmonary disease, unspecified; G47.33 Obstructive sleep apnea (adult) (pediatric); E66.9 Obesity, unspecified; Z68.33 Body mass index [BMI] 33.0-33.9, adult; Z99.89 Dependence on other enabling machines and devices | CPT/HCPCS: 94010 ==

== ENCOUNTER → 2023-08-16 | Outpatient (BNV) | payer BC, SELFPAY | PROVIDERS: PCP Internal Medicine; Visit Provider Internal Medicine Cardiovascular Disease | DX: Z01.818 Encounter for other preprocedural examination (principal); M48.062 Spinal stenosis, lumbar region with neurogenic claudication | CPT/HCPCS: 93010 ==

== ENCOUNTER 2023-08-30 07:25 | Day surgery (SDC) | payer BC, SELFPAY ==
--- NOTE | 2023-08-16 | ECG_ITS ---
Test Reason : preop Blood Pressure : / mmHG Vent. Rate : 072 BPM Atrial Rate : 072 BPM P-R Int : 180 ms QRS Dur : 096 ms QT Int : 430 ms P-R-T Axes : 063 -08 037 degrees QTc Int : 470 ms Normal sinus rhythm Normal ECG When compared with ECG of 02-MAY-2018 04:26, No significant change was found Referred By: Leny Ge Electronically Signed By:ARIEL REINOSO MD
--- NOTE | 2023-08-16 13:40 | HO.ANESPROP2 ---
Documented by User: Leny Ge NP 08/29/23 08:50 HPI - Anesthesia Eval Consult details Narrative: 62yo M for Left L5 Laminectomy Lumbar Decompression (Foraminotomy), 08/30/23 Pulmo cleared. Follows [facility] pulmo for COPD, MIGUEL Stable at 08/2023 at PCP visit No recent illness. No CP/SOB within limits of pain. COPD/Asthma. Dulera BID. Rare albuterol. MIGUEL. CPAP QHS. BP elevated at PAT. Pt reports feeling worked up . BP at PCP and Pulmo acceptable. Pt will monitor at home and bring recording DOS. PMFSH Active Problems Active Problems: All Active Problems (Updated 08/16/23 @ 13:31 by Katie Giraldo, RN) Lumbar stenosis with neurogenic claudication (Acute) Primary osteoarthritis of left knee (Acute) COPD (chronic obstructive pulmonary disease) (Acute) Primary osteoarthritis of right knee (Acute) Primary osteoarthritis of right shoulder (Acute) Obesity (BMI 30.0-34.9) (Acute) MIGUEL on CPAP (Acute) Asthma (Acute) Past Medical History Medical History (Updated 08/16/23 @ 13:31 by Katie Giraldo, RN) Acute biliary pancreatitis Epididymitis Anxiety Eczema Fatty liver Elevated LFTs Osteoarthritis Gout Elevated cholesterol COPD (chronic obstructive pulmonary disease) Asthma MIGUEL on CPAP Obesity (BMI 30.0-34.9) CPAP (continuous positive airway pressure) dependence Obstructive sleep apnea Primary osteoarthritis of right shoulder Rotator cuff impingement syndrome of right shoulder Primary osteoarthritis of right knee Varicose vein of leg Hypertension Family History Family History Mother No problems noted. Father No problems noted. Family history of problems with anesthesia: No Surgical History Surgical History (Updated 08/16/23 @ 13:34 by Katie Giraldo RN) Hx of umbilical hernia repair H/O colonoscopy Hx of inguinal hernia repair Hx of cholecystectomy History of Problems with Anesthesia: No Social History Social History Are you a primary intensive care medicine specialist to a significant other at home: No Do you presently have visiting nurse or other home services: No Patient Tobacco Use Status: Former Tobacco user Use of substances other than those prescribed or required for medical reasons: No Have you been hit, kicked, punched, or otherwise hurt by someone within the past year? If so, by whom?: No Advance Directives: No Advance Directives Information Provided: Yes Advance Directives on File: No Recently lost weight without trying: No Eating poorly because of decreased appetite: No Nutrition Risks: No Nutritional Risk Poor oral hygiene: No Current occupational status: employed Current occupation: School Bus Attendant - Right Handed Meds Allergies Allergy/AdvReac Type Severity Reaction Status Date / Time penicillin V Allergy Unknown unknown Verified 07/26/23 10:51 amlodipine Allergy Dizziness Verified 08/15/23 13:44 lisinopril Allergy Photosensit Verified 08/15/23 13:44 ivity metoprolol Allergy Rash Verified 08/15/23 13:44 adhesive Allergy Unknown rash Uncoded 07/26/23 10:51 LATEX Allergy Unknown severe rash Uncoded 07/26/23 10:51 Home Medications Medication Instructions Recorded Confirmed Last Taken Type allopurinol 300 mg tablet 150 mg PO DAILY 07/06/20 08/16/23 Unknown History atorvastatin 10 mg tablet 10 mg PO DAILY 07/06/20 08/16/23 Unknown History losartan 100 mg tablet 100 mg PO DAILY 07/06/20 08/16/23 Unknown History verapamil 180 mg 24 hr 180 mg PO DAILY 07/06/20 08/16/23 08/30/23 06:30 History capsule,extended release hydrochlorothiazide 25 mg tablet 25 mg PO DAILY 10/13/20 08/16/23 Unknown History brimonidine 0.15 % eye drops 1 drp ophthalmic (eye) BID 07/28/21 08/16/23 Unknown History ibuprofen 800 mg tablet 800 mg PO BID PRN Pain 07/28/21 08/16/23 08/25/23 History oxycodone 5 mg tablet 5 mg PO BID PRN Pain 07/28/21 08/16/23 08/30/23 06:30 History latanoprost 0.005 % eye drops 1 drp ophthalmic (eye) BEDTIME 07/26/23 08/16/23 Unknown History mometasone-formoterol HFA 100 2 puff inhalation DAILY for asthma 08/16/23 08/16/23 Unknown History mcg-5 mcg/actuation aerosol inhaler (Dulera) Exam Pertinent Lab Results Pertinent Lab Results: Lab Results 08/16/23 Range/Units 14:23 WBC 8.9 (4.8-10.8) X10*3/uL RBC 4.33 L (4.60-5.80) X10*6/uL Hgb 14.7 (14.0-18.0) g/dl Hct 41.2 L (42.0-52.0) % MCV 95.2 (80.0-98.0) fL MCH 33.9 H (27.0-33.0) pg MCHC 35.7 (31.0-36.0) g/dl RDW 12.3 (11.0-16.0) % Plt Count 223 (160-400) X10*3/uL MPV 9.2 L (9.4-12.4) fL Absolute Nucleated RBC 0.000 (0.0-0.012) X10*3/uL Nucleated RBC % (auto) 0.0 (0.0-0.2) /100WBC Sodium 134 L (135-145) mmol/L Potassium 3.7 (3.3-5.1) mmol/L Chloride 94 L (96-108) mmol/L Carbon Dioxide 28 (22-29) mmol/L Anion Gap 16 (12-20) BUN 14 (9-16) mg/dL Creatinine 0.93 (0.5-1.4) mg/dL Estim Creat Clear Calc 99.7 Estimated GFR > 60 Random Glucose 92 (60-115) mg/dL Calcium 10.4 H (8.4-10.2) mg/dL Narrative Narrative: EKG 08/2023 Vent. Rate : 072 BPM Atrial Rate : 072 BPM P-R Int : 180 ms QRS Dur : 096 ms QT Int : 430 ms P-R-T Axes : 063 -08 037 degrees QTc Int : 470 ms Normal sinus rhythm Normal ECG When compared with ECG of 02-MAY-2018 04:26, No significant change was found Airway Mallampati Class: III TM Dist: <=3cm Neck ROM: Limited Loose/Missing/Broken Teeth: Yes (Missing molars) Heart: RRR Lungs: CTAB Assessment and Plan Assessment Anesthesia Assessment: Anesthesia Plan Discussed and PAT Visit Final Anesthetic Review Family History of Problems with Anesthesia: No History of Problems with Anesthesia: No Documented by User: Armin Cotton MD 08/30/23 08:09 [facility] Past Medical History Medical History (Updated 08/16/23 @ 13:31 by Katie Giraldo, RN) Acute biliary pancreatitis Epididymitis Anxiety Eczema Fatty liver Elevated LFTs Osteoarthritis Gout Elevated cholesterol COPD (chronic obstructive pulmonary disease) Asthma MIGUEL on CPAP Obesity (BMI 30.0-34.9) CPAP (continuous positive airway pressure) dependence Obstructive sleep apnea Primary osteoarthritis of right shoulder Rotator cuff impingement syndrome of right shoulder Primary osteoarthritis of right knee Varicose vein of leg Hypertension Family History Family History Mother No problems noted. Father No problems noted. Surgical History Surgical History (Updated 08/16/23 @ 13:34 by Katie Giraldo RN) Hx of umbilical hernia repair H/O colonoscopy Hx of inguinal hernia repair Hx of cholecystectomy Social History Social History Are you a primary intensive care medicine specialist to a significant other at home: No Do you presently have visiting nurse or other home services: No Patient Tobacco Use Status: Former Tobacco user Use of substances other than those prescribed or required for medical reasons: No Have you been hit, kicked, punched, or otherwise hurt by someone within the past year? If so, by whom?: No Advance Directives: No Advance Directives Information Provided: Yes Advance Directives on File: No Recently lost weight without trying: No Eating poorly because of decreased appetite: No Nutrition Risks: No Nutritional Risk Poor oral hygiene: No Current occupational status: employed Current occupation: School Bus Attendant - Right Handed Meds Allergies Allergy/AdvReac Type Severity Reaction Status Date / Time penicillin V Allergy Unknown unknown Verified 07/26/23 10:51 amlodipine Allergy Dizziness Verified 08/15/23 13:44 lisinopril Allergy Photosensit Verified 08/15/23 13:44 ivity metoprolol Allergy Rash Verified 08/15/23 13:44 adhesive Allergy Unknown rash Uncoded 07/26/23 10:51 LATEX Allergy Unknown severe rash Uncoded 07/26/23 10:51 Home Medications Medication Instructions Recorded Confirmed Last Taken Type allopurinol 300 mg tablet 150 mg PO DAILY 07/06/20 08/16/23 Unknown History atorvastatin 10 mg tablet 10 mg PO DAILY 07/06/20 08/16/23 Unknown History losartan 100 mg tablet 100 mg PO DAILY 07/06/20 08/16/23 Unknown History verapamil 180 mg 24 hr 180 mg PO DAILY 07/06/20 08/16/23 08/30/23 06:30 History capsule,extended release hydrochlorothiazide 25 mg tablet 25 mg PO DAILY 10/13/20 08/16/23 Unknown History brimonidine 0.15 % eye drops 1 drp ophthalmic (eye) BID 07/28/21 08/16/23 Unknown History ibuprofen 800 mg tablet 800 mg PO BID PRN Pain 07/28/21 08/16/23 08/25/23 History oxycodone 5 mg tablet 5 mg PO BID PRN Pain 07/28/21 08/16/23 08/30/23 06:30 History latanoprost 0.005 % eye drops 1 drp ophthalmic (eye) BEDTIME 07/26/23 08/16/23 Unknown History mometasone-formoterol HFA 100 2 puff inhalation DAILY for asthma 08/16/23 08/16/23 Unknown History mcg-5 mcg/actuation aerosol inhaler (Dulera) Assessment and Plan Assessment Anesthesia Assessment: Chart Reviewed Final Anesthetic Review NPO: Yes ASA Class: III Final Preanesthetic Review: No Changes in Pt Med Stat, Meds/Allgs Chart Reviewed, Consent Obtained/Reviewed and Anes Risks/Benef Reviewed Patient Risk: Intermediate Procedure Risk: Intermediate Anesthetic Plan Anesthetic Plan: GA Disposition: Standard PACU
[2023-08-16 13:44] VITALS: BP 174/96; PULSE 72; RESP 18; O2SAT 98; BMI 34.3
[2023-08-16 15:25] LABS: Hematocrit 41.2 % (42.0-52.0); Hemoglobin 14.7 g/dl (14.0-18.0); Mean Corpuscular HGB Conc 35.7 g/dl (31.0-36.0); Mean Corpuscular Hemoglobin 33.9 pg (27.0-33.0); Mean Corpuscular Volume 95.2 fL (80.0-98.0); Mean Platelet Volume 9.2 fL (9.4-12.4); Platelet Count 223 X10*3/uL (160-400); Red Blood Count 4.33 X10*6/uL (4.60-5.80); Red Cell Distribution Width 12.3 % (11.0-16.0); White Blood Count 8.9 X10*3/uL (4.8-10.8)
[2023-08-16 16:02] LABS: Anion Gap 16 (12-20); Blood Urea Nitrogen 14 mg/dL (9-16); Calcium 10.4 mg/dL (8.4-10.2); Carbon Dioxide 28 mmol/L (22-29); Chloride 94 mmol/L (96-108); Creatinine Clr Calc Pharmacy 99.7; Estimated Glomerular Filt Rate > 60; Glucose Random 92 mg/dL (60-115); Potassium 3.7 mmol/L (3.3-5.1); Sodium 134 mmol/L (135-145)
[2023-08-30] VITALS (9 sets, daily range): BP systolic 137–153; BP diastolic 82–103; PULSE 63–89; RESP 16; TEMP 36.2–37; O2SAT 93–98; BMI 33.3
--- NOTE | ~2023-08-30 | FL_ITS ---
EXAMINATION: XR FLUOROSCOPY WITH IMAGES CLINICAL INFORMATION: L5 hemilaminotomy. COMPARISON: Lumbar spine radiographs dated 06/20/2023. TECHNIQUE: Fluoroscopy Supervised By: Cayden Saavedra. Fluoroscopy Time: 0.0 minutes. Cumulative Dose: 2.35 mGy. DAP: 0.0408 Gycm2. Images: 1. FINDINGS: The submitted image shows a probe with tip directed at the L5 posterior elements. FL/FL guidance in OR IMPRESSION: Intraoperative fluoroscopic guidance is provided during L5 hemilaminotomy. Please see the patient's Operative Report for full procedural details.
--- NOTE | 2023-08-30 07:04 | MHC.SHP ---
Pre-Procedural Eval Section A Date of Service: 08/30/23 The patient is an INPATIENT: No Changes since office visit: No Cold of Flu in the past 2 weeks, No New Medical Problems, No Changes in Medication and No Patient answered all questions The History & Physical has been completed within 30 days and I have reviewed it.: No Section B Chief Complaint: Spinal stenosis, lumbar region with neurogenic cla Allergies: Allergies Allergy/AdvReac Type Severity Reaction Status Date / Time penicillin V Allergy Unknown unknown Verified 07/26/23 10:51 amlodipine Allergy Dizziness Verified 08/15/23 13:44 lisinopril Allergy Photosensit Verified 08/15/23 13:44 ivity metoprolol Allergy Rash Verified 08/15/23 13:44 adhesive Allergy Unknown rash Uncoded 07/26/23 10:51 LATEX Allergy Unknown severe rash Uncoded 07/26/23 10:51 Review of Systems Sugical H&P ROS: Negative: Constitution, Cardiovascular, Respiratory, Neurological, Psychiatric, Hem-Onc, Allergic/Immunologic, Gastrointestinal, Genitourinary, Musculoskeletal, Integumentary, Endocrine and Eyes/Ears/Nose/Throat Exam Surgical H&P Exam: Not Evaluated: HEENT, Not Evaluated: Heart, Not Evaluated: Lungs, Not Evaluated: Extremities, Not Evaluated: Abdomen, Not Evaluated: Skin and Not Evaluated: Neurological Plan Diagnosis/Plan: Unchanged Left L5 hemilaminotomy and foraminotomy Time Spent With Patient Time: Total time managing care of this patient today __5__ minutes.
[2023-08-30] MEDS: methocarbamoL 750 MG TABLET PO (08:28)
[2023-08-30] MEDS: Gabapentin 300 MG CAPSULE PO (08:28)
[2023-08-30] MEDS: Lactated Ringers 1,000 ML 100 ML IVCONT (08:35)
[2023-08-30] MEDS: vancomycin HCL 1,500 MG in 0.9 % Sodium Chloride 500 ML 333.33 MG IV (08:39)
--- NOTE | 2023-08-30 10:00 | P.OP_ITS ---
Operative Note Operative Note Date of Service: 08/30/23 Narrative: Preoperative Diagnosis: Spinal stenosis/lateral recess stenosis/neural foraminal stenosis Operation: Left L5 Laminotomy, Partial facetectomy and foraminotomy with use of microscope Consent Informed Consent was obtained for this operation. I have explained the nature, purpose and benefits of the operation. I have discussed the risks and benefit of the operation including possible complications or adverse events with patient/family. Alternative(s) were discussed with the patient with their relative benefits and risks as well as the consequences of not accepting the operation were included in obtaining consent. Surgeon: TETO PISANO MD, PHD Procedure Assisted By: geraldo Yan Description of Procedure This patient is suffering from a left L5 lumbar radiculopathy. MRI shows severe left L5 neuroforaminal stenosis. The patient was offered a decompression of the nervous structures. The procedure complications were explained. The patient was consented. The patient was brought to the operating room and endotracheally intubated. The patient was turned in prone position on the Lazaro frame. Prep and drape was done followed by timeout. Physician chiropractic assistant provided access. A mid lumbar incision was made followed by release of the paravertebral muscle on the left side to expose the left L5 lamina and facet joint. An intraoperative x- ray was obtained to confirm the correct level. The microscope was brought in. I took over the procedure. The high-speed drill was used to do a L5 laminotomy. #2 Kerrison was used to further remove the lamina towards the L5 foramen. With a nerve hook the medial wall of the L5 pedicle was palpated as well as the beginning of the L5 foramen. The facet joint was partially drilled down after which with a #2 Kerrison a foraminotomy was done. Finally a foraminotomy Kerrison was used to complete the foraminotomy. A long nerve hook could be easily passed lateral and dorsally from the nerve root, a sign of relief of the neuroforaminal stenosis and decompression of the nerve root . The microscope was removed. Hemostasis was done. Incision was closed in 2 layers. Steri-Strips were used to approximate incision. An OpSite with Tegaderm was used to cover the incision. All sponge needle counts were correct. Patient was extubated and transported in stable is to recovery room. Anesthesia: General Estimated Blood Loss (ml): Minimal Duration of Surgery: Under 45 Minutes Postoperative Plan: Discharge to home
--- NOTE | 2023-08-30 10:09 | PM.DS ---
DS: Providers Provider Date of Service: 08/30/23 Date of discharge: 08/30/23 Primary care physician: Luis Eduardo Greer DO Admitting clinician: Jatin Saavedra DS: Diagnosis Discharge Diagnosis (1) Lumbar stenosis with neurogenic claudication: Status: Acute DS: Summary Time Attestation Discharge coordination time: Less than 30 minutes Quality: Safe Use of Opioids Does Pt have an Active Cancer Diagnosis on the Problem List?: No Quality: Stroke Does the patient have a stroke diagnosis?: No Physical Exam Vital Signs: Vital Signs: Last Vital Signs Temp 98.6 F 08/30/23 08:22 Pulse 89 08/30/23 08:22 Resp 16 08/30/23 08:22 BP 148/103 H 08/30/23 08:22 Pulse Ox 95 08/30/23 08:22 O2 Del Method Room Air 08/30/23 08:22 BMI result Body Mass Index 33.3 Discharge Plan Discharge Patient Disposition: Home, Self-Care Referrals: Luis Eduardo Greer DO [Primary Care Provider] - 1 Week Discharge Medications: New docusate sodium [Colace] 100 mg capsule 100 mg PO BID Qty: 20 0RF oxycodone 5 mg tablet 5 mg PO Q4H PRN (Reason: pain) Qty: 30 0RF Rx Instructions: Partial Fill upon patient request. Continued albuterol sulfate [ProAir HFA] 90 mcg/actuation HFA aerosol inhaler 2 puff inhalation Q4-6H PRN (Reason: shortness of breath or wheezing) Qty: 1 0RF montelukast 10 mg tablet 10 mg PO DAILY Qty: 30 0RF Dulera 100-5 mcg/actuation HFA aerosol inhaler 2 puff inhalation DAILY atorvastatin 10 mg tablet 10 mg PO DAILY verapamil 180 mg capsule,ext rel. pellets 24 hr 180 mg PO DAILY allopurinol 300 mg tablet 150 mg PO DAILY losartan 100 mg tablet 100 mg PO DAILY hydrochlorothiazide 25 mg tablet 25 mg PO DAILY oxycodone 5 mg tablet 5 mg PO BID PRN (Reason: Pain) ibuprofen 800 mg tablet 800 mg PO BID PRN (Reason: Pain) brimonidine 0.15 % drops 1 drp ophthalmic (eye) BID latanoprost 0.005 % drops 1 drp ophthalmic (eye) BEDTIME Discharge Orders: Discharge Order (Routine); Ordered 08/30/23 Ordered By: Anthony T Gutierrez Diet: Advance to usual diet Activity on Discharge: As tolerated Activity Restrictions/Additional Instructions: After your spinal surgery we ask you to observe the following restrictions/guidelines: Activity: It is normal to feel some discomfort as you increase your activity, but that will improve with time. We ask you avoid heavy lifting or acitivities that cause pain. As a general rule, 8lbs is a safe limit for lifting right after surgery. Walk as much as you feel comfortable but not to exhaustion. You will feel extra tired the first few days after surgery. Stay well hydrated. It is OK to walk up and down stairs You may return to driving when you are off narcotics (such as vicodin, oxycodone, dilaudid, etc), and you are back to normal functional capacity. If you have any concerns please check with office before driving. Return to work is specific to each patient and each surgery, so please speak with your doctor/PA at first follow up. Please bring paperwork such as FMLA at that time if you need it filled out. Medications: For optimum pain control, it is best to start with a combination of 500 mg of Tylenol every 4 hours with 600 mg of Motrin every 8 hours, and use narcotics as needed in between for breakthrough pain. We will give you a short supply of narcotics after surgery (usually one weeks worth). If you need more please call the office but do not use more than prescribed. You will need to give our office 48 hours notice if you need narcotics refilled and we do not fill narcotics on weekends or evenings. If you are on a narcotic, it is a good idea to take a stool softener such as colace or senna to avoid constipation If you take blood thinner such as aspirin, Plavix, Coumadin, Effient, Eliquis etc for conditions such as Afib, DVT, Pulmonary embolus, coronary disease, stents etc please speak with your surgeon about specific details as to when you can resume these medications. You can resume NSAIDs on post op day 1 (eg: Motrin, Naproxen, etc). Follow up: Please call the office, , after surgery to arrange a 3 week follow up for wound check. Wound Care: You may remove your dressing on the first day after surgery. ?You may ?leave open to air. Please do not remove the steri strips underneath. they will fall off on their own in one week. IT IS NORMAL FOR THE WOUND TO OOZE OR BE BLOODY FOR A FEW DAYS AFTER SURGERY. ?IF THIS HAPPENS JUST PLACE NEW DRESSING OVER IT TO AVOID STAINING CLOTHES. You may shower on post op day # 1 We ask that you do not let the water soak the wound. If it does get wet, just towel dry lightly. Please do not scrub your incision or place any type of chemical/ointment on the wound. No tub baths, pools or jacuzzis for one month. If you have any leaking or redness from your wound, or fevers, please call office
[2023-08-30] MEDS: oxyCODONE HCl Immed Release 5 MG TABLET 10 MG PO (11:00)
== END 2023-08-30 12:01 | disposition home or self-care (01) ==
PROVIDERS: Nurse Practitioner; PCP Internal Medicine; Visit Provider Neurological Surgery
PROC: (CPT 63047; principal; 2023-08-30 09:20)
DX: M48.062 Spinal stenosis, lumbar region with neurogenic claudication (principal); I10 Essential (primary) hypertension; E78.00 Pure hypercholesterolemia, unspecified; J45.909 Unspecified asthma, uncomplicated; Z91.040 Latex allergy status; M10.9 Gout, unspecified; G47.33 Obstructive sleep apnea (adult) (pediatric); Z79.899 Other long term (current) drug therapy; Z79.1 Long term (current) use of non-steroidal anti-inflammatories (NSAID); Z88.0 Allergy status to penicillin; Z98.890 Other specified postprocedural states; Z87.891 Personal history of nicotine dependence
CPT/HCPCS: 63047; 36415; 80048; 85027; 93005; J0131; J0330; J1100; J1170; J1885; J2250; J2371; J2405; J2704; J3010; J3371

== ENCOUNTER → 2023-08-30 07:25 | Outpatient (BNV) | payer BC, SELFPAY | PROVIDERS: PCP Internal Medicine; Visit Provider Neurological Surgery | DX: M48.062 Spinal stenosis, lumbar region with neurogenic claudication (principal) | CPT/HCPCS: 63047; 99499 ==

== ENCOUNTER 2023-09-19 16:25 | Outpatient (REF) | payer BC, SELFPAY ==
--- NOTE | ~2023-09-19 | XR_ITS ---
EXAMINATION: XR LUMBOSACRAL SPINE WITH OBLIQUES CLINICAL INFORMATION: Pain after fall COMPARISON: Lumbar spine x-rays June 20, 2023 TECHNIQUE: 4 views of the lumbar spine were obtained. FINDINGS: 5 nonrib-bearing lumbar vertebral bodies are visualized. There is mild to moderate levoscoliosis of the lumbar spine centered at L3, some of which may be positional in nature. Also noted is minimal retrolisthesis of L1 on L2 and L2 on L3 with mild anterolisthesis of L4 on L5. I do not appreciate any gross change in alignment with flexion or extension positioning. Lumbar vertebral body heights are maintained. There is mild to moderate disc space narrowing throughout the lumbar spine with moderate to severe narrowing of the L5/S1 level. Small osteophytes are scattered throughout the lumbar spine. Sacroiliac joints are symmetric. Surgical clips in the right upper abdomen suggest prior cholecystectomy. XR/XR lumbar spine 4V min IMPRESSION: 1. Mild to moderate diffuse degenerative changes of the lumbar spine. 2. No compression deformity. 3. No radiographic evidence of instability.
== END 2023-09-19 16:26 | disposition home or self-care (01) ==
LOC: HO.HOSX 16:25
PROVIDERS: Visit Provider Physician Assistant
DX: M48.062 Spinal stenosis, lumbar region with neurogenic claudication (principal)
CPT/HCPCS: 72110

== ENCOUNTER 2023-09-20 08:46 | Outpatient (AMB) | payer BC, SELFPAY ==
--- NOTE | 2023-09-20 09:25 | HO.SPINEOV ---
Intake Intake Visit Reasons: 1st post op Allergies penicillin V Allergy (Unknown, Verified 07/26/23 10:51) unknown amlodipine Allergy (Verified 08/15/23 13:44) Dizziness lisinopril Allergy (Verified 08/15/23 13:44) Photosensitivity metoprolol Allergy (Verified 08/15/23 13:44) Rash adhesive Allergy (Unknown, Uncoded 07/26/23 10:51) rash LATEX Allergy (Unknown, Uncoded 07/26/23 10:51) severe rash Assessment & Plan Assessment & Plan (1) Lumbar stenosis with neurogenic claudication: Code(s): M48.062 - Spinal stenosis, lumbar region with neurogenic claudication Plan Procedure: Left L5 Laminotomy, Partial facetectomy and foraminotomy Hussein comes in today for his 1st postoperative visit. He reports that he was doing very well postoperatively and was healing appropriately until he had a fall on the ice 2 days ago when trying to walk out to a shed in his backyard. He states that he fell directly on his buttocks and began having significant buttocks pain. We ordered him a set of AP/lateral/flexion/extension x-rays today in office to evaluate for any changes when compared to his x-ray imaging from June. I did not see any acute osseous abnormalities. He report that his only symptom is pain, and states that he has no numbness/weakness/burning/tingling. He reports that his buttocks pain is to the point where he feels his legs shake when he tries to stand. On examination the patient has a 3-4 cm area of ecchymosis in his mid to low buttocks, which is an estimated 6 in from his incision site. The incision site is closed, well healing, and has no signs of ecchymosis, eryrthema, inflammation or drainage. The patient has 5/5 strength of his lower extremities, despite reported pain when strength testing. His mobility is intact. His sensation is grossly intact. He is able to ambulate well, but does rise from a seated position with some difficulty. The patient has no new neurological symptoms. He is reporting pain secondary to an acute fall on his buttocks. On inspection it appears that the surgical site was not affected by this fall. His x-ray imaging looks good when compared to the x-rays of June. He was encouraged that if he is in a significant amount of pain he should have a full workup/evaluation completed by the Emergency Department, as this appears to be an acute issue that is separate from his recent surgery. We will appreciate their recommendations and workup/plan, but do not believe there is any further management needed by our service for this issue at this time. It is possible that he has an occult sacral fracture which would be best viewed on a CT scan. Pino Saavedra MD,PhD [facility] Coding Level of Care Code Global (68042) Diagnoses Lumbar stenosis with neurogenic claudication M48.062
== END 2023-09-20 09:44 | disposition home or self-care (01) ==
PROVIDERS: PCP Internal Medicine; Visit Provider Physician Assistant
DX: M48.062 Spinal stenosis, lumbar region with neurogenic claudication (principal)
CPT/HCPCS: 99024

== ENCOUNTER → 2023-09-20 08:46 | Outpatient (BNVA) | payer BC, SELFPAY | PROVIDERS: PCP Internal Medicine; Visit Provider Physician Assistant ==

== ENCOUNTER 2023-09-20 09:32 | Emergency (ER) | payer BC, SELFPAY ==
--- NOTE | ~2023-09-20 | CT_ITS ---
EXAMINATION: CT PELVIS WITHOUT CONTRAST CLINICAL INFORMATION: Pain after fall. COMPARISON: CT images of pelvis from 05/02/2018. Radiographs of lumbosacral region from 09/20/2023. TECHNIQUE: Noncontrast multidetector CT imaging examination of the pelvis is performed. Axial images and multiplanar reformatted images are reviewed. This CT examination was performed using dose optimization techniques as appropriate, variously including the following: *Automated exposure control *Adjustment of mA and/or kV according to patient size (this includes techniques or standardized protocols for targeted exams where dose is matched to indication/reason for exam; i.e. extremities or head) *Use of iterative reconstruction technique DLP: 429 mGy-cm FINDINGS: There is edema within the midline lower back lumbosacral region without any evidence of a hyperdense soft tissue hematoma or organized collection. The visualized paraspinal muscles are unremarkable. At L4-L5, findings include severe facet arthropathy, moderate degenerative loss of disc height, vacuum disc phenomenon, mild disc bulge and 0.7 cm (approximately 20%) anterolisthesis of L4 on L5. There is at least moderate bilateral neural foraminal stenosis at L4-L5. At L5-S1, findings include chronic severe degenerative disc disease with marked loss of disc height, vacuum disc, endplate sclerosis, osteophytosis, disc bulge and chronic minimal retrolisthesis of L5 on S1. There appears to be a postoperative left-sided laminotomy defect of L5. Mild facet joint hypertrophy (left worse than right). There appears to be [id number] left and [id number] right neural foraminal stenosis at this level. No evidence of sacral or coccygeal fracture. The sacral and coccygeal segments have normal alignment. Also, alignment is normal at the pubic symphysis and hips. There is chronic osseous fusion anteriorly at sacroiliac joints. No suspicious bone lesions. No evidence of proximal femoral fracture or acetabular injury. Small subchondral cysts of superolateral acetabulum at each mildly degenerated hip. There are foci of calcium deposition in the region of gluteus medius minimus/medius attachments to each greater trochanter. No evidence of trochanteric bursitis. No pelvic fluid collection. Prostate gland is chronically enlarged; it measures 5.5 cm transverse and 4.2 cm AP. There is chronic mild circumferential wall thickening of the urinary bladder. No evidence of bladder mass or stone. No pelvic free fluid. No lymphadenopathy. No dilated loops of bowel within the visualized lower abdomen or pelvis. Multiple diverticula of the descending and sigmoid colon without diverticulitis. There is an old right inguinal hernia consisting of extraperitoneal fat. CT/CT pelvis wo IV con IMPRESSION: * No evidence of sacral or coccygeal fracture. * Chronic facet arthropathy, degenerative disc disease and vertebral subluxations of the visualized lower lumbar spine, as noted above. There appears to be an old postoperative left-sided laminotomy defect of L5. No suspicious bone lesions. * Multiple diverticula of the visualized descending and sigmoid colon without diverticulitis.
--- NOTE | ~2023-09-20 | XR_ITS ---
EXAMINATION: XR SACRUM AND COCCYX CLINICAL INFORMATION: History of fall, pain COMPARISON: 06/20/2023 TECHNIQUE: Sacrum and coccyx, 3 views FINDINGS: Chronic degenerative loss of disc height, vertebral osteophyte formation and facet arthropathy of L4-L5 and L5-S1. There is approximately 0.5 cm of chronic grade 1 anterolisthesis of L4 on L5. There is chronic minimal degenerative retrolisthesis of L5 on S1. Sacrum and sacroiliac joints remain intact. No evidence of sacral or coccygeal fracture. Pubic symphysis is normal. The articular cartilage space of each hip is maintained. No suspicious osseous lesions. XR/XR sacrum coccyx min 2V IMPRESSION: * No evidence of sacral or coccygeal fracture. * Chronic facet arthropathy and degenerative disc disease of the visualized lower lumbar spine.
[2023-09-20 09:38] VITALS: BP 137/72; PULSE 83; RESP 19; TEMP 36.6; O2SAT 98; BMI 33.0
[2023-09-20] MEDS: Ketorolac Tromethamine 30 MG/ML VIAL IM (11:02)
[2023-09-20] MEDS: oxyCODONE HCl Immed Release 5 MG TABLET PO (11:02)
--- NOTE | 2023-09-20 12:19 | ED.FALL ---
HPI - Fall General Chief Complaint: Fall Stated Complaint: Fall - lower back pain Time Seen by Provider: 09/20/23 10:25 Source: patient, RN notes reviewed and old records reviewed Mode of arrival: ambulatory History of Present Illness HPI Narrative: 62-year-old male with a past medical history of anxiety, gout, COPD, HLD, MIGUEL on CPAP, osteoarthritis, HTN, s/p left L5 laminectomy, partial facetectomy and foraminotomy on 08/30/2023, presenting to ED from neuro spine office for evaluation of low back/sacral pain and ecchymosis s/p mechanical trip and fall 4 days ago. States tripped and fell in the snow landing on right arm and buttock, denies head trauma or LOC. Denies taking anticoagulation. Reports pain has been worsening, with difficulty standing/moving and bending. Denies numbness, tingling, weakness, incontinence/retention, fever, abdominal pain. MD complaint: fall Related Data Home Medications Medication Instructions Recorded Confirmed allopurinol 300 mg tablet 150 mg PO DAILY 07/06/20 08/16/23 atorvastatin 10 mg tablet 10 mg PO DAILY 07/06/20 08/16/23 losartan 100 mg tablet 100 mg PO DAILY 07/06/20 08/16/23 verapamil 180 mg 24 hr 180 mg PO DAILY 07/06/20 08/16/23 capsule,extended release hydrochlorothiazide 25 mg tablet 25 mg PO DAILY 10/13/20 08/16/23 brimonidine 0.15 % eye drops 1 drp ophthalmic (eye) BID 07/28/21 08/16/23 ibuprofen 800 mg tablet 800 mg PO BID PRN Pain 07/28/21 08/16/23 latanoprost 0.005 % eye drops 1 drp ophthalmic (eye) BEDTIME 07/26/23 08/16/23 mometasone-formoterol HFA 100 2 puff inhalation DAILY for asthma 08/16/23 08/16/23 mcg-5 mcg/actuation aerosol inhaler (Dulera) Previous Rx's Medication Instructions Recorded albuterol sulfate 90 mcg/actuation 2 puff inhalation Q4-6H PRN 09/16/21 aerosol inhaler (ProAir HFA) shortness of breath or wheezing #1 ea montelukast 10 mg tablet 10 mg PO DAILY #30 tabs 01/04/23 docusate sodium 100 mg capsule 100 mg PO BID #20 caps 08/30/23 (Colace) cyclobenzaprine 5 mg tablet 5 mg PO Q8H PRN pain (scale score 09/20/23 7-10) 5 days #14 tabs lidocaine 5 % topical patch 1 patch topical DAILY PRN pain #30 09/20/23 (Lidoderm) ea naproxen 500 mg tablet 500 mg PO BID PRN pain 10 days #20 09/20/23 tabs oxycodone 5 mg tablet 5 mg PO BID PRN severe pain (scale 09/20/23 score 7-10) #10 tabs Allergies Allergy/AdvReac Type Severity Reaction Status Date / Time penicillin V Allergy Unknown unknown Verified 09/20/23 09:38 amlodipine Allergy Dizziness Verified 09/20/23 09:38 lisinopril Allergy Photosensit Verified 09/20/23 09:38 ivity metoprolol Allergy Rash Verified 09/20/23 09:38 adhesive Allergy Unknown rash Uncoded 09/20/23 09:38 LATEX Allergy Unknown severe rash Uncoded 09/20/23 09:38 Review of Systems Review of Systems: Constitutional: No Fever, No Chills ENT/Mouth: No Ear Pain, No Nasal Congestion, No sore throat, No Rhinorrhea, No Swallowing Difficulty Cardiovascular: No Chest Pain, No SOB Respiratory: No Cough, No Sputum, No Wheezing Gastrointestinal: No Nausea, No Vomiting, No Diarrhea, No Constipation, No Abdominal pain Genitourinary: No Dysuria, No Urinary Frequency, No Hematuria, No Urinary Incontinence/retention, No Flank Pain Musculoskeletal: +joint pain, + Myalgias, No Joint Swelling Skin: No Skin Lesions, No rash Neuro: No Weakness, No Numbness, No Paresthesias Yes all other systems are reviewed and are negative Constitutional: Constitutional: Reports as per HPI Neurologic: Denies Sensory deficit (Neuro) [facility] Past Medical History Attestation statement: The following information was validated with the patient. Source: old records reviewed Medical History Acute biliary pancreatitis Epididymitis Anxiety Eczema Fatty liver Elevated LFTs Osteoarthritis Gout Elevated cholesterol COPD (chronic obstructive pulmonary disease) Asthma MIGUEL on CPAP Obesity (BMI 30.0-34.9) CPAP (continuous positive airway pressure) dependence Obstructive sleep apnea Primary osteoarthritis of right shoulder Rotator cuff impingement syndrome of right shoulder Primary osteoarthritis of right knee Varicose vein of leg Hypertension Surgical History Hx of umbilical hernia repair H/O colonoscopy Hx of inguinal hernia repair Hx of cholecystectomy Family History Family History Mother No problems noted. Father No problems noted. 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 Physical Exam Vital Signs: Vital Signs: Last Vital Signs Temp 98 F 09/20/23 09:38 Pulse 83 09/20/23 09:38 Resp 19 09/20/23 09:38 BP 137/72 09/20/23 09:38 Pulse Ox 98 09/20/23 09:38 O2 Del Method Room Air 09/20/23 09:38 BMI result Body Mass Index 33.0 Const: General: cooperative, healthy appearing and no acute distress Orientation/consciousness: patient oriented x3 Limitations: no limitations HEENT: Head: Yes normal to inspection and Yes atraumatic Ears: hearing grossly normal bilaterally General nose exam: Normal external nose present Face and sinus: Yes normal facial exam Eyes: General: appearance normal, both eyes and all related structures EOM: EOMs intact bilaterally Neck: Neck: Yes normal visual inspection and Yes no meningeal signs Resp: Effort & Inspection: normal respiratory effort and no respiratory distress Cardio: Rate: regular rate GI: Inspection: Yes normal to inspection Palpation (GI): Soft to palpation, nontender, no guarding and not rigid : General: Yes no CVA tenderness Back/Spine/Pelvis: Other: No midline cervical/thoracic/lumbar spinous tenderness/step-off or deformity. Healing surgical scar noted to lumbar region. No surrounding erythema or warmth. No drainage/fluctuance or induration + small area of ecchymosis noted to buttock with reproducible tenderness. No crepitus Back: no CVA tenderness Skin: Rashes: no rashes Wounds: no wounds Neuro: Other: Strength intact throughout. No saddle anesthesia. Sensation intact to light touch. Neurovascular intact distally General: patient oriented x3, tone normal, moves all extremities, no meningeal signs and no focal motor deficits Cranial nerves: Yes CN's II-XII intact bilaterally Gait exam (Neuro): Antalgic gait present Sensory Exam: No Sensory deficit (Neuro) Extrem: General: Yes normal to inspection Course Course Course Narrative: XR sacrum coccyx min 2V IMPRESSION: * No evidence of sacral or coccygeal fracture. * Chronic facet arthropathy and degenerative disc disease of the visualized lower lumbar spine. XR lumbar spine 4V min IMPRESSION: 1. Mild to moderate diffuse degenerative changes of the lumbar spine. 2. No compression deformity. 3. No radiographic evidence of instability. 1417--CT pelvis wo IV con IMPRESSION: * No evidence of sacral or coccygeal fracture. * Chronic facet arthropathy, degenerative disc disease and vertebral subluxations of the visualized lower lumbar spine, as noted above. There appears to be an old postoperative left-sided laminotomy defect of L5. No suspicious bone lesions. * Multiple diverticula of the visualized descending and sigmoid colon without diverticulitis. Results discussed with patient including worrisome signs and symptoms and strict return precautions, and when to return to the emergency department. They verbalized understanding and feel safe for discharge at this time. >> 10 pills of Oxycodone were sent to pharmacy this morning by neuro spine [facility] Medications Administered Discontinued Medications Generic Name Dose Route Start Last Admin Trade Name Freq PRN Reason Stop Dose Admin Cyclobenzaprine HCl 5 mg 09/20/23 13:16 09/20/23 13:23 Cyclobenzaprine Hcl 5 Mg Tablet PO 09/20/23 13:17 5 mg ONCE ONE Administration Ketorolac Tromethamine 30 mg 09/20/23 10:49 09/20/23 11:02 Ketorolac Tromethamine 30 Mg/Ml Vial IM 09/20/23 10:50 30 mg ONCE ONE Administration Lidocaine 1 patch 09/20/23 13:16 09/20/23 13:24 Lidocaine 4 % Patch Adh..Patch TRANSDERMA 09/20/23 13:17 1 patch ONCE ONE Administration Protocol Oxycodone HCl 5 mg 09/20/23 10:49 09/20/23 11:02 Oxycodone Hcl Immed Release 5 Mg Tablet PO 09/20/23 10:50 5 mg ONCE ONE Administration Medical Decision Making Medical Decision Making [facility] Narrative: 62-year-old male with a past medical history of anxiety, gout, COPD, HLD, MIGUEL on CPAP, osteoarthritis, HTN, s/p left L5 laminectomy, partial facetectomy and foraminotomy on 08/30/2023, presenting to ED from neuro spine office for evaluation of low back/sacral pain and ecchymosis s/p mechanical trip and fall 4 days ago. On exam vital signs stable, NAD, nontoxic appearing, physical exam as noted above. No red flag symptoms or midline spinous tenderness. Ambulating with antalgic gait. Per note from Neurospine office recommend CT for occult sacral fracture. Concern for fracture vs herniated disc vs sciatica/muscle spasm. Low suspicion for postsurgical complication, cauda equina/cord compression or epidural abscess. Plan: X-rays ordered in triage, +/-CT for further evaluation, pain control. Please refer to course for remaining clinical decision making, interpretation of labs/imaging results, and discussions with consultants and/or family members. Differential Diagnosis Differential Diagnoses: The differential diagnosis associated with the presentation includes As above Independent Interpretation I performed an independent interpretation of an: Plain X-Ray and CT Scan Radiology Impression Discussion of test interpretation with radiology: I have reviewed the radiologist's reading. External Record Review External record reviewed: Inpatient record, Office record, Outpatient record, Prior outpatient labs, Prior outpatient radiology, Primary care record and Outside ED record Tests considered The following testing was considered but not selected: As above Prescription Management I considered prescription management with: Pain Medication Chronic Conditions Patient?s care impacted by: Other Discharge Plan Discharge Clinical Impression: Coccygeal contusion Patient Disposition: Home, Self-Care Instructions: Coccyx Injury (ED) Additional Instructions: Your pain is likely musculoskeletal Flexeril is a muscle relaxer, take at night as it makes you drowsy, do not drive, drink alcohol, or operate machinery while taking it Naproxen as an anti-inflammatory / pain medication, take with food Lidoderm patches are numbing patches, apply to painful area Please follow-up with your spine doctor If symptoms persist or worsen, pain becomes unbearable, you developed urinary retention or incontinence, or weakness return to the ED Prescriptions: New lidocaine [Lidoderm] 5 % adhesive patch,medicated 1 patch topical DAILY MDD remove after 12 hours PRN (Reason: pain) Qty: 30 0RF Rx Instructions: leave on most painful area for up to 12 hrs naproxen 500 mg tablet 500 mg PO BID PRN (Reason: pain) 10 Days Qty: 20 0RF cyclobenzaprine 5 mg tablet 5 mg PO Q8H PRN (Reason: pain (scale score 7-10)) 5 Days Qty: 14 0RF Discontinued oxycodone 5 mg tablet 5 mg PO BID PRN (Reason: Pain) No Action albuterol sulfate [ProAir HFA] 90 mcg/actuation HFA aerosol inhaler 2 puff inhalation Q4-6H PRN (Reason: shortness of breath or wheezing) Qty: 1 0RF montelukast 10 mg tablet 10 mg PO DAILY Qty: 30 0RF Dulera 100-5 mcg/actuation HFA aerosol inhaler 2 puff inhalation DAILY docusate sodium [Colace] 100 mg capsule 100 mg PO BID Qty: 20 0RF atorvastatin 10 mg tablet 10 mg PO DAILY verapamil 180 mg capsule,ext rel. pellets 24 hr 180 mg PO DAILY allopurinol 300 mg tablet 150 mg PO DAILY losartan 100 mg tablet 100 mg PO DAILY hydrochlorothiazide 25 mg tablet 25 mg PO DAILY ibuprofen 800 mg tablet 800 mg PO BID PRN (Reason: Pain) brimonidine 0.15 % drops 1 drp ophthalmic (eye) BID latanoprost 0.005 % drops 1 drp ophthalmic (eye) BEDTIME oxycodone 5 mg tablet 5 mg PO BID PRN (Reason: severe pain (scale score 7-10)) Qty: 10 0RF Rx Instructions: Partial Fill upon patient request. Referrals: [facility] [place] [facility] [place] Group] Luis Eduardo Greer DO [Primary Care Provider] -
[2023-09-20] MEDS: Cyclobenzaprine HCl 5 MG TABLET PO (13:23)
[2023-09-20] MEDS: Lidocaine 4 % Patch ADH..PATCH 1 PATCH TRANSDERMA (13:24)
== END 2023-09-20 15:30 | disposition home or self-care (01) ==
PROVIDERS: Emergency Provider Emergency Medicine; PCP Internal Medicine
DX: S30.0XXA Contusion of lower back and pelvis, initial encounter (principal); W00.0XXA Fall on same level due to ice and snow, initial encounter; M54.50 Low back pain, unspecified; I10 Essential (primary) hypertension; E78.00 Pure hypercholesterolemia, unspecified; Z79.02 Long term (current) use of antithrombotics/antiplatelets; Z79.899 Other long term (current) drug therapy; Y93.9 Activity, unspecified; Y92.9 Unspecified place or not applicable; Y99.9 Unspecified external cause status
CPT/HCPCS: 72192; 72220; 96372; 99283; 99284; J1885

== ENCOUNTER 2023-10-02 14:36 | Outpatient (AMB) | payer BC, SELFPAY ==
--- NOTE | 2023-10-02 09:33 | HO.SPINEOV ---
Intake Intake Visit Reasons: F/u MRI done @ [facility] Intake Note: Mr. Barraza is here today to F/u on MRI done at [facility]. Auriculotherapist Required: No Allergies penicillin V Allergy (Unknown, Verified 09/20/23 09:38) unknown amlodipine Allergy (Verified 09/20/23 09:38) Dizziness lisinopril Allergy (Verified 09/20/23 09:38) Photosensitivity metoprolol Allergy (Verified 09/20/23 09:38) Rash adhesive Allergy (Unknown, Uncoded 09/20/23 09:38) rash LATEX Allergy (Unknown, Uncoded 09/20/23 09:38) severe rash Assessment & Plan Assessment & Plan (1) Left hip pain: Code(s): M25.552 - Pain in left hip Plan: Hussein is a pleasant 62-year-old male who comes in today for a follow-up after having an MRI completed. To recap Hussein had a Left L5 Laminotomy, Partial facetectomy and foraminotomy completed roughly 1 month ago. He did well after surgery until he slipped on the ice trying to bring something out to his shed, and landed directly on his buttocks. He has had pain in a specified spot near the lower left side of his sacrum since this incident. He has had a workup in this office, a workup at the emergency department, a CT scan of the pelvis, x-ray imaging of the pelvis, x-ray imaging of the lumbar spine, and now an MRI of the lumbar spine in order to try and address this issue as he reports severe ongoing pain. Each of his subsequent testing has proved inconclusive. I reviewed his MRI of the lumbar spine with the attending neurosurgeon Dr. Saavedra, who agrees that there is no obvious post-surgical change that would indicate a lumbar spine pathology for this issue. In the office today Hussein reports that he is concerned his left hip may be affected by this injury, and feels as though sitting on his left side hurts more than sitting regularly. We discussed the possibility of having a workup/evaluation by 1 of our orthopedic physicians here at [facility]. He is agreeable to this, as he would like to find the cause of his continued pain. We did discuss that it may be as simple as a sprain from his mechanical fall, but he does not feel as though this is the case. Total amount of time spent in this visit was 32 minutes in discussion of symptoms, MRI imaging results and subsequent plan of care. Pino Saavedra MD,PhD [facility] Orders: Referrals Orthopedics Referral M25.552 - Pain in left hip Coding Level of Care Code Est Pt Level 4 (88080) Diagnoses Left hip pain M25.552
== END 2023-10-02 15:11 | disposition home or self-care (01) ==
PROVIDERS: PCP Internal Medicine; Visit Provider Physician Assistant
DX: M25.552 Pain in left hip (principal)
CPT/HCPCS: 99214

== ENCOUNTER → 2023-10-02 14:36 | Outpatient (BNVA) | payer BC, SELFPAY | PROVIDERS: PCP Internal Medicine; Visit Provider Physician Assistant ==

== ENCOUNTER 2023-10-29 09:11 | Outpatient (REF) | payer BC, SELFPAY ==
[2023-10-29 11:20] LABS: MANUAL DIFF FLAG NO
[2023-10-29 11:25] LABS: Basophils Absolute Auto 0.1 X10*3/uL (0.0-0.2); Basophils Percent Auto 0.9 % (0-2); Eosinophils Absolute Auto 0.1 X10*3/uL (0.0-0.4); Eosinophils Percent Auto 1.6 % (0-4); Hematocrit 37.5 % (42.0-52.0); Hemoglobin 13.3 g/dl (14.0-18.0); Imm Gran Abs Auto 0.03 X10*3/uL (0.00-0.03); Imm Gran Pct Auto 0.5 % (0.0-0.4); Lymphocytes Absolute Auto 1.1 X10*3/uL (1.2-4.9); Lymphocytes Percent Auto 19.7 % (20-40); Mean Corpuscular HGB Conc 35.5 g/dl (31.0-36.0); Mean Corpuscular Hemoglobin 32.4 pg (27.0-33.0); Mean Corpuscular Volume 91.5 fL (80.0-98.0); Mean Platelet Volume 8.7 fL (9.4-12.4); Monocytes Absolute Auto 0.7 X10*3/uL (0.1-1.2); Monocytes Percent Auto 11.6 % (2-11); Neutrophils Absolute Auto 3.7 x10*3/uL (2.0-8.3); Neutrophils Percent Auto 65.7 % (45-73); Platelet Count 280 X10*3/uL (160-400); Red Cell Distribution Width 12.7 % (11.0-16.0); White Blood Count 5.7 X10*3/uL (4.8-10.8)
[2023-10-29 13:10] LABS: PSA,Total (Free>4and<10) 2.82 ng/mL (0.00-4.00)
[2023-10-29 13:16] LABS: Alanine Aminotransferase 16 U/L (0-40); Albumin Level 4.1 g/dL (3.5-5.0); Alkaline Phosphatase 125 U/L (39-117); Anion Gap 15 (12-20); Aspartate Amino Transferase 18 U/L (5-37); Bilirubin Total 0.6 mg/dL (0.0-1.0); Blood Urea Nitrogen 7 mg/dL (9-16); Calcium 10.6 mg/dL (8.4-10.2); Carbon Dioxide 31 mmol/L (22-29); Chloride 88 mmol/L (96-108); Cholesterol 207 mg/dL (<200); Estimated Glomerular Filt Rate > 60; Glucose Fasting 88 mg/dL (60-99); HDL Cholesterol 97 mg/dL (>40); LDL Cholesterol Calculated 97 mg/dL (<100); Potassium 3.8 mmol/L (3.3-5.1); Sodium 130 mmol/L (135-145); Thyroid Stimulating Hormone 1.21 uIU/mL (0.32-4.0); Total Protein 7.9 g/dL (6.5-8.0); Triglycerides 69 mg/dL (<150); Uric Acid 3.6 mg/dL (3.4-7.0); Vitamin D 25-OH Total 48.6 ng/mL (>30)
== END 2023-10-29 09:12 | disposition home or self-care (01) ==
LOC: HO.HMGCLDS 09:11
PROVIDERS: PCP Internal Medicine; Visit Provider Internal Medicine
DX: Z12.5 Encounter for screening for malignant neoplasm of prostate (principal); I10 Essential (primary) hypertension; E78.00 Pure hypercholesterolemia, unspecified; J45.30 Mild persistent asthma, uncomplicated; G47.33 Obstructive sleep apnea (adult) (pediatric)
CPT/HCPCS: 36415; 80053; 80061; 82306; 84153; 84443; 84550; 85025

== ENCOUNTER 2023-11-05 08:05 | Outpatient (AMB) | payer BC, SELFPAY ==
--- NOTE | 2023-11-05 08:09 | MHC.OFFVIS ---
Intake Vital Signs 11/05/23 08:12 Height 5 ft 10 in Weight 230 lb BMI 33.0 BP 120/62 Blood Pressure Location Lt brachial Position Sitting Respiration 12 Pulse 93 Pulse Source Pulse Oximeter Pulse Oximetry (%) 98 Oxygen Delivery Method Room Air Intake Visit Reasons: Unspecified fall, initial encounter Allergies penicillin V Allergy (Unknown, Verified 11/05/23 08:13) unknown amlodipine Allergy (Verified 11/05/23 08:13) Dizziness lisinopril Allergy (Verified 11/05/23 08:13) Photosensitivity metoprolol Allergy (Verified 11/05/23 08:13) Rash adhesive Allergy (Unknown, Uncoded 11/05/23 08:13) rash LATEX Allergy (Unknown, Uncoded 11/05/23 08:13) severe rash Medication List - Last Reconciled 11/05/23 by Jennifer Benavides LPN albuterol sulfate 90 mcg/actuation (ProAir HFA) 2 puffs inhalation Q4-6H PRN allopurinol 150 mg PO DAILY atorvastatin 10 mg PO DAILY brimonidine 0.15% 1 drp ophthalmic (eye) BID cyclobenzaprine 5 mg PO Q8H PRN 5 days hydrochlorothiazide 25 mg PO DAILY ibuprofen 800 mg PO BID PRN latanoprost 0.005% 1 drp ophthalmic (eye) BEDTIME losartan 100 mg PO DAILY mometasone-formoterol 100-5 mcg/actuation (Dulera) 2 puffs inhalation DAILY montelukast 10 mg PO DAILY verapamil ER 180 mg PO DAILY HPI Unspecified fall, initial encounter HPI Details 63-year-old male who presents today to the office for an evaluation of fall. The patient underwent left L5 laminotomy, partial facetectomy, and foraminotomy on 08/30/2023 and was doing well postoperatively until he fell on the ice on 09/18/2023 when trying to walk out to a shed in his backyard. The pain has been going on for several years that got worse after the fall. He states that he fell directly on his buttocks and began to have significant back and buttock pain. Pain is described as 8/10 in intensity and is worse with the movements during his awake hours, slightly better with sleeping. He is unable to stand or walk for a short period of time due to pain. He reports that his only symptom is pain and states that he has no numbness, weakness, burning, or tingling. He reports that his back and buttocks hurt to the point where he feels his legs shake when he tries to stand.? [facility] Medical History Acute biliary pancreatitis Epididymitis Anxiety Eczema Fatty liver Elevated LFTs Osteoarthritis Gout Elevated cholesterol COPD (chronic obstructive pulmonary disease) Asthma MIGUEL on CPAP Obesity (BMI 30.0-34.9) CPAP (continuous positive airway pressure) dependence Obstructive sleep apnea Primary osteoarthritis of right shoulder Rotator cuff impingement syndrome of right shoulder Primary osteoarthritis of right knee Varicose vein of leg Hypertension Surgical History Hx of umbilical hernia repair H/O colonoscopy Hx of inguinal hernia repair Hx of cholecystectomy Family History Mother No problems noted. Father No problems noted. 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 Alert and oriented. Mood and affect appropriate. Follows and participates in conversation appropriately. Respiratory effort is unlabored. Able to transition from sit to stand unassisted. Ambulates with bilaterally normal heel strike and toe off. He has significant pain with forward flexion, axial rotation, and lateral bending. Any kind of movement provokes significant axial back pain. Results Reviewed Results Reviewed: There are significant modic changes and endplate degenerative changes at multiple levels, most pronounced at L3, L4, L5, and S1. Date of Exam: 09-27-2023: MR Lumbar Spine FINDINGS: NUMBERING: The study assumes 5 ulp-[id number] lumbar type vertebral bodies. ALIGNMENT, VERTEBRAE, MARROW, AND DISCS: There is grade 1 anterolisthesis of L3 on L4. Otherwise, alignment is maintained. Mild chronic anterior superior endplate compression deformity of L1 has developed since 2020. Otherwise, vertebral body heights are maintained. There are multilevel Modic type II degenerative endplate signal changes and there are multilevel endplate osteophytes. There is diffuse disc desiccation and loss of intervertebral disc height is most pronounced at the L3-L4 through L5-S1 levels where there is severe loss of intervertebral disc height which appears increased compared to the previous exam. CONUS: The conus is normal in signal and contour, with normal level of termination at L1. PARASPINAL TISSUES: There is atrophy of the posterior paraspinal musculature. DETAILED FINDINGS BY LEVEL: The spinal canal is congenitally narrow due to short pedicles. T12-L1: Minimal disc bulge and facet spurring. No significant canal stenosis or neural foraminal narrowing. L1-L2: Disc bulge asymmetric towards the right and facet spurring. Mild right neural foraminal narrowing. No significant canal stenosis or left neural foraminal narrowing. L2-L3: Diffuse disc bulge, ligamentum flavum thickening, and facet arthropathy as well as epidural lipomatosis. There is a synovial cyst extending into the spinal canal from the left facet joint which is new. There is moderate to severe canal narrowing which appears worse than on the previous exam. There is moderate left and mild to moderate right neural foraminal narrowing which appears increased from prior on the right side. L3-L4: Diffuse disc bulge and ligamentum flavum thickening and facet arthropathy resulting in severe canal stenosis which is increased from the previous examination. There is severe left neural foraminal narrowing which is not significantly changed. Mild to moderate right neural foraminal narrowing has increased. L4-L5: Disc bulge with endplate osteophytes and facet arthropathy which results in mild spinal canal narrowing, moderate left neural foraminal narrowing, and mild to moderate right neural foraminal narrowing, not significantly changed. L5-S1: Disc osteophyte complex with a right paracentral protrusion component which again causes crowding of the traversing right S1 nerve roots. This has increased since prior. There is also facet arthropathy. There is overall no significant canal stenosis. There is moderate left and severe right neural foraminal narrowing. IMPRESSION: Multilevel degenerative changes of the lumbar spine with epidural lipomatosis superimposed on a congenitally narrowed spinal canal again resulting in multilevel spinal canal and neural foraminal stenosis, with findings progressed from the previous exam. Please see details above. MR LUMBAR SPINE WITHOUT CONTRAST FINDINGS: CORONAL ALIGNMENT: Slight lumbar levocurvature, minimally convex to the left at L2-L3. SAGITTAL ALIGNMENT: There is 3 mm of grade 1 degenerative spondylolisthesis at L4-L5 with trace retrolisthesis at L3-L4. No definite spondylolysis. There is 2 mm of retrolisthesis at L1-L2. LUMBOSACRAL JUNCTION: Normal. There are 5 [id number] lumbar-type vertebral bodies. VERTEBRAL BODIES: Lumbar vertebral body heights are well-maintained. There is very slight chronic anterior wedging of the T12 and T11 vertebral bodies. DISC SPACES AND ENDPLATES: There is severe disc space height loss at L5-S1, moderate disc space height loss at L4-L5 and L3-L4 and mild disc space height loss at L2-L3 and L1-L2 with disc desiccation at these levels, with multilevel anterolateral spondylosis. There is a prominent Schmorl''s node along the superior endplate of L4 and there are small Schmorl''s nodes at L5-S1 and Schmorl''s nodes along the superior and inferior endplates of T12. There is probable intradiscal vacuum disc phenomena at L5-S1, L4-L5 and L1-L2. SPINAL CANAL: There is diffuse epidural lipomatosis with a constricted appearance to the dural sac particularly at the L4-L5 level. BONE MARROW: There is type I degenerative marrow signal change noted along the endplates at L5-S1, with type II marrow signal changes at L4-L5 and L5-S1 and along the endplates anteriorly at L1-L2. No suspicious marrow replacing process or worrisome bone marrow edema. There is partial ankylosis of the SI joints bilaterally, which is noted on retrospective views of the pelvis from CT of 05/02/2018. CONUS MEDULLARIS: Terminates at L1-L2. Morphology and signal is normal. INTRADURAL NERVE ROOTS: There is crowding of the intradural nerve roots at L4-L5. Otherwise limited assessment due to suboptimal visualization. L5-S1: There is disc bulging with a superimposed central extruded disc herniation with caudal migration with mild encroachment on the ventral dural sac. Disc herniation encroaches on the origin of the left S1 nerve root sleeve. There is [id number] bilateral facet arthrosis without significant central spinal canal stenosis. There is crowding of the left subarticular zone and there is severe left-sided and moderate to severe right-sided neural foraminal stenosis with impingement on the exiting L5 nerve roots, left more than right. L4-L5: Grade 1 degenerative spondylolisthesis is noted with unroofing of the posterior disc margin and superimposed broad-based central disc protrusion with encroachment on the ventral dural sac. There is a small cephalad extruded disc fragment to the right of midline without neural impingement. Ligamentum flavum thickening is noted with moderate to severe bilateral facet arthropathy with interspinous ligament degeneration and bilateral facet joint effusions. Prominent dorsal fat pad noted. Moderate to severe central spinal canal stenosis is noted with crowding of the intradural nerve roots. There is mild bilateral lateral recess stenosis and moderate to severe subarticular recess stenosis, left more than right with encroachment on the traversing left L5 nerve root. There is moderate left and mild right-sided neural foraminal stenosis without exiting neural impingement. L3-L4: Mild disc bulging slightly asymmetric to the left with minimal indentation of the ventral thecal sac and mild facet arthrosis on the right without significant spinal canal or neural foraminal stenosis. Prominent epidural fat. L2-L3: Concentric disc bulging is noted with superimposed central extruded disc herniation and flattening of the ventral dural sac with prominent dorsal fat pad and mild central spinal canal stenosis. Disc bulging extends laterally with mild foraminal narrowing bilaterally without exiting neural impingement. L1-L2: Diffuse disc bulging is noted with a superimposed right-sided foraminal/extraforaminal disc protrusion. No significant facet arthrosis or spinal canal stenosis. Minor foraminal narrowing on the right. T12-L1: Small central to right paramedian disc protrusion without significant facet arthrosis, canal or neural foraminal stenosis. PARAVERTEBRAL AND INCLUDED EXTRASPINAL SOFT TISSUES: The visualized paravertebral soft tissues and included retroperitoneal structures are unremarkable within the limitations of the exam. Note that there is partially imaged bilateral perinephric edema which is similar to the previous CT abdomen. IMPRESSION: 1. Grade 1 degenerative spondylolisthesis at L4-L5 and mild retrolisthesis at L3-L4 and mild retrolisthesis at L1-L2. 2. Multilevel DDD and spondylosis, with multilevel disc bulging and disc herniations as detailed by level above superimposed on epidural lipomatosis. 3. Moderate to severe spinal canal stenosis at L4-L5 with crowding of the intradural nerve roots and subarticular recesses, left more than right with encroachment on the traversing left L5 nerve root. 4. Mild spinal canal stenosis at L2-L3. 5. Multilevel bilateral facet arthropathy most apparent at L4-L5 and L5-S1 with bilateral neural foraminal stenosis at these levels, left more than right at L4-L5 and bilaterally at L5-S1 with bilateral L5 nerve root impingement. 6. Partial ankylosis of the SI joints bilaterally. 09/20/23: XR LUMBOSACRAL SPINE WITH OBLIQUES FINDINGS: 5 nonrib-bearing lumbar vertebral bodies are visualized. There is mild to moderate levoscoliosis of the lumbar spine centered at L3, some of which may be positional in nature. Also noted is minimal retrolisthesis of L1 on L2 and L2 on L3 with mild anterolisthesis of L4 on L5. I do not appreciate any gross change in alignment with flexion or extension positioning. Lumbar vertebral body heights are maintained. There is mild to moderate disc space narrowing throughout the lumbar spine with moderate to severe narrowing of the L5/S1 level. Small osteophytes are scattered throughout the lumbar spine. Sacroiliac joints are symmetric. Surgical clips in the right upper abdomen suggest prior cholecystectomy. IMPRESSION: 1. Mild to moderate diffuse degenerative changes of the lumbar spine. 2. No compression deformity. 3. No radiographic evidence of instability. 09/20/23: XR SACRUM AND COCCYX FINDINGS: Chronic degenerative loss of disc height, vertebral osteophyte formation and facet arthropathy of L4-L5 and L5-S1. There is approximately 0.5 cm of chronic grade 1 anterolisthesis of L4 on L5. There is chronic minimal degenerative retrolisthesis of L5 on S1. Sacrum and sacroiliac joints remain intact. No evidence of sacral or coccygeal fracture. Pubic symphysis is normal. The articular cartilage space of each hip is maintained. No suspicious osseous lesions. IMPRESSION: * No evidence of sacral or coccygeal fracture. * Chronic facet arthropathy and degenerative disc disease of the visualized lower lumbar spine. 09/20/23: CT PELVIS WITHOUT CONTRAST FINDINGS: There is edema within the midline lower back lumbosacral region without any evidence of a hyperdense soft tissue hematoma or organized collection. The visualized paraspinal muscles are unremarkable. At L4-L5, findings include severe facet arthropathy, moderate degenerative loss of disc height, vacuum disc phenomenon, mild disc bulge and 0.7 cm (approximately 20%) anterolisthesis of L4 on L5. There is at least moderate bilateral neural foraminal stenosis at L4-L5. At L5-S1, findings include chronic severe degenerative disc disease with marked loss of disc height, vacuum disc, endplate sclerosis, osteophytosis, disc bulge and chronic minimal retrolisthesis of L5 on S1. There appears to be a postoperative left-sided laminotomy defect of L5. Mild facet joint hypertrophy (left worse than right). There appears to be megp-rx-ptjmglas left and vfbcxmmc-bz-yprerk right neural foraminal stenosis at this level. No evidence of sacral or coccygeal fracture. The sacral and coccygeal segments have normal alignment. Also, alignment is normal at the pubic symphysis and hips. There is chronic osseous fusion anteriorly at sacroiliac joints. No suspicious bone lesions. No evidence of proximal femoral fracture or acetabular injury. Small subchondral cysts of superolateral acetabulum at each mildly degenerated hip. There are foci of calcium deposition in the region of gluteus medius minimus/medius attachments to each greater trochanter. No evidence of trochanteric bursitis. No pelvic fluid collection. Prostate gland is chronically enlarged; it measures 5.5 cm transverse and 4.2 cm AP. There is chronic mild circumferential wall thickening of the urinary bladder. No evidence of bladder mass or stone. No pelvic free fluid. No lymphadenopathy. No dilated loops of bowel within the visualized lower abdomen or pelvis. Multiple diverticula of the descending and sigmoid colon without diverticulitis. There is an old right inguinal hernia consisting of extraperitoneal fat. IMPRESSION: * No evidence of sacral or coccygeal fracture. * Chronic facet arthropathy, degenerative disc disease and vertebral subluxations of the visualized lower lumbar spine, as noted above. There appears to be an old postoperative left-sided laminotomy defect of L5. No suspicious bone lesions. * Multiple diverticula of the visualized descending and sigmoid colon without diverticulitis. Assessment & Plan Assessment & Plan (1) Vertebrogenic low back pain: Code(s): M54.51 - Vertebrogenic low back pain (2) Post laminectomy syndrome: Code(s): M96.1 - Postlaminectomy syndrome, not elsewhere classified Plan I discussed BVN ablation at L3-L4-L5 and S1 with the patient as a possible treatment option for axial low back pain secondary to vertebrogenic endplate degeneration. We will schedule him for BVN ablation at L3-L4-L5 and S1. Discussed the risks and benefits of the procedure with the patient in detail. All questions were answered. The patient is on board with the plan. Justification for interventional therapy: ? Patient with average pain > 6/10 ? Patient has exhausted physical therapy, oral medications, and surgical intervention without any relief of his axial pain symptoms. ? Patient unable to tolerate physical therapy due to pain. . He has radiological findings consistent with vertebrogenic back pain sources. . Patient has a good understanding of their pain condition and has appropriate mental and social support Scribed for Dr. Mccann by Nick Mac, pediatric medical assistant, on 11/05/2023. I, Dr. Mccann, have personally reviewed and agree with the information entered by the scribe. Coding Level of Care Code New Pt Level 4 (43301) Diagnoses Vertebrogenic low back pain M54.51 Post laminectomy syndrome M96.1
[2023-11-05 08:12] VITALS: BP 120/62; PULSE 93; RESP 12; O2SAT 98; BMI 33.0
== END 2023-11-05 09:15 | disposition home or self-care (01) ==
PROVIDERS: PCP Internal Medicine; Referring Provider Physician Assistant; Visit Provider Internal Medicine
DX: M54.51 Vertebrogenic low back pain (principal); M96.1 Postlaminectomy syndrome, not elsewhere classified
CPT/HCPCS: 99204

== ENCOUNTER → 2023-11-05 08:05 | Outpatient (BNVA) | payer BC, SELFPAY | PROVIDERS: PCP Internal Medicine; Referring Provider Physician Assistant; Visit Provider Internal Medicine ==

== ENCOUNTER 2023-12-10 08:40 | Outpatient (AMB) | payer BC, SELFPAY ==
[2023-12-10 08:52] VITALS: BP 151/71; PULSE 105; O2SAT 96; BMI 31.6
--- NOTE | 2023-12-10 08:52 | MHC.OFFVIS ---
Vital Signs 12/10/23 08:52 Height 5 ft 10 in Weight 220 lb BMI 31.6 BP 151/71 H Blood Pressure Location Lt brachial Position Sitting Pulse 105 H Pulse Source Pulse Oximeter Pulse Oximetry (%) 96 Oxygen Delivery Method Room Air Intake Visit Reasons: discuss FMLA Intake Note: Pain today 05/15 [employer] Required: No Accompanied by: Spouse Allergies penicillin V Allergy (Unknown, Verified 12/10/23 08:53) unknown amlodipine Allergy (Verified 12/10/23 08:53) Dizziness lisinopril Allergy (Verified 12/10/23 08:53) Photosensitivity metoprolol Allergy (Verified 12/10/23 08:53) Rash adhesive Allergy (Unknown, Uncoded 11/05/23 08:13) rash LATEX Allergy (Unknown, Uncoded 11/05/23 08:13) severe rash HPI HPI discuss FMLA: Details: 63-year-old male who presents today to the office to discuss his ongoing severe low back pain. He states that his primary care physician will take care of all the paperwork for the FMLA. His current primary care physician is Dr. Greer and the patient would like us to send details regarding the proposed Intracept procedure to the PCP's office. He still reports back pain and leg pain. His pain is worse on the left side than on the on the right side. His pain radiates down to his knees. He has difficulty standing for a short period of time. He has to sit down due to pain. He states that his movements worsen his pain. His last surgery was on 08/30/2023. He had a fall about 1 month later, which worsened his pain. He reports that he recently underwent corticosteroid injections to his shoulders, which seemed to help his low back pain as well due to the systemic effects of the steroid. He is interested in corticosteroid facet injections in his lower back to see if that might help his axial low back pain. [facility] Medical History Acute biliary pancreatitis Epididymitis Anxiety Eczema Fatty liver Elevated LFTs Osteoarthritis Gout Elevated cholesterol COPD (chronic obstructive pulmonary disease) Asthma MIGUEL on CPAP Obesity (BMI 30.0-34.9) CPAP (continuous positive airway pressure) dependence Obstructive sleep apnea Primary osteoarthritis of right shoulder Rotator cuff impingement syndrome of right shoulder Primary osteoarthritis of right knee Varicose vein of leg Hypertension Surgical History Hx of umbilical hernia repair H/O colonoscopy Hx of inguinal hernia repair Hx of cholecystectomy Family History Mother No problems noted. Father No problems noted. Social History Are you a primary respiratory care instructor to a significant other at home: No Do you presently have visiting nurse or other home services: No Patient Tobacco Use Status: Former Tobacco user Current occupational status: employed Current occupation: Bankruptcy Legal Assistant - Right Handed Review of Systems Const All systems reviewed & are unremarkable except as noted in HPI and below Physical Exam Vital Signs: Last Vital Signs Pulse 105 H 12/10/23 08:52 BP 151/71 H 12/10/23 08:52 Pulse Ox 96 12/10/23 08:52 Oxygen Delivery Method Room Air 12/10/23 08:52 BMI result Body Mass Index 31.6 General: Appears afebrile. Alert and oriented. Mood and affect appropriate. Follows and participates in conversation appropriately. Respiratory effort is unlabored. Able to transition from sit to stand unassisted. Ambulates with bilaterally normal heel strike and toe off. Severely limited range of motion of the lower back. Axial rotation, lateral bending forward bending and flexion, all reproduce severe pain in the lower back. Office Procedures Injection Trigger Point Multi Trigger point injection US guided. Pre-procedure diagnosis: Myofascial pain Post-procedure diagnosis: Myofascial pain Site and number of trigger points: Multifidus muscle, bilateral. Longissimus thoracis, bilateral. Solution: Total volume administered 8 mL containing 0.25% ropivacaine and 40 mg Kenalog The procedure, its benefits, and its risks were explained to the patient and all questions were answered. Prior to the start of the procedure, a ?time out? was performed to confirm correct patient, procedure, and laterality. Trigger points were identified by manual palpation and marked. The skin was cleaned with Chloraprep. A 100 mm 21 gauge Pajunk needle was used. The needle was advanced towards the painful muscles in the vicinity of the L4-5, L5-S1 facets and posterior sacroiliac ligaments on both sides. Each of the trigger points was injected with 1 ml of injectate. This process was repeated at each trigger point site. The patient tolerated the procedure well. The patient tolerated the procedure well, without complication. The patient denied any numbness, paresthesias, or weakness. Post-procedure vitals were recorded as part of the nursing discharge note in electronic medical record. Following a period of observation, the patient was discharged in stable condition with written discharge instructions. An ultrasound image of the injection was taken and stored in the permanent record. Trigger Point Multiple: - Trigger point injection =/>3 Results Reviewed Results Reviewed: Once again MRI review shows significant edema at the L5 and S1 endplates associated with Modic changes. Moderate facet arthritis in the lumbar lower facets. Assessment & Plan Assessment & Plan (1) Post laminectomy syndrome: Code(s): M96.1 - Postlaminectomy syndrome, not elsewhere classified Category: Medical (2) Vertebrogenic low back pain: Code(s): M54.51 - Vertebrogenic low back pain Category: Medical (3) Myofascial pain: Code(s): M79.18 - Myalgia, other site Category: Medical Plan In order to provide relief while we are waiting for the Intracept PA to be approved, we undertook ultrasound-guided periarticular trigger point injections in the vicinity of lumbar L4-5, L5-S1 facets and sacroiliac joint, US guided. Patient tolerated procedure well and was discharged home in stable condition with discharge instructions. Proceed with basivertebral nerve ablation as previously planned once insurance authorization is approved. Scribed for Dr. Mccann by Nick Mac, clinical medical transcriptionist, on 12/10/2023. I, Dr. Mccann, have personally reviewed and agree with the information entered by the scribe. Coding Level of Care Code Est Pt Level 4 (47602) Diagnoses Post laminectomy syndrome M96.1 Vertebrogenic low back pain M54.51 Myofascial pain M79.18 CPT Codes Details - Trigger Point Multiple: - Trigger point injection =/>3 ([id number])
== END 2023-12-10 09:52 | disposition home or self-care (01) ==
PROVIDERS: PCP Internal Medicine; Visit Provider Internal Medicine
DX: M96.1 Postlaminectomy syndrome, not elsewhere classified (principal); M54.51 Vertebrogenic low back pain; M79.18 Myalgia, other site
CPT/HCPCS: 20553; 99214

== ENCOUNTER → 2023-12-10 08:40 | Outpatient (BNVA) | payer BC, SELFPAY | PROVIDERS: PCP Internal Medicine; Visit Provider Internal Medicine | DX: M96.1 Postlaminectomy syndrome, not elsewhere classified (principal); M54.51 Vertebrogenic low back pain; M79.18 Myalgia, other site | CPT/HCPCS: 20553; J2795; J3301 ==

== ENCOUNTER 2024-05-28 06:09 | Outpatient (REF) | payer BC, SELFPAY ==
[2024-05-28 10:08] LABS: MANUAL DIFF FLAG NO
[2024-05-28 10:18] LABS: Basophils Percent Auto 0.8 % (0-2); Eosinophils Absolute Auto 0.1 X10*3/uL (0.0-0.4); Eosinophils Percent Auto 1.3 % (0-4); Hematocrit 35.7 % (42.0-52.0); Imm Gran Abs Auto 0.03 X10*3/uL (0.00-0.03); Imm Gran Pct Auto 0.6 % (0.0-0.4); Lymphocytes Absolute Auto 1.4 X10*3/uL (1.2-4.9); Lymphocytes Percent Auto 26.7 % (20-40); Mean Corpuscular HGB Conc 33.6 g/dl (31.0-36.0); Mean Corpuscular Hemoglobin 32.6 pg (27.0-33.0); Monocytes Absolute Auto 0.6 X10*3/uL (0.1-1.2); Monocytes Percent Auto 10.5 % (2-11); Neutrophils Absolute Auto 3.2 x10*3/uL (2.0-8.3); Neutrophils Percent Auto 60.1 % (45-73); Platelet Count 278 X10*3/uL (160-400); Red Blood Count 3.68 X10*6/uL (4.60-5.80); Red Cell Distribution Width 13.2 % (11.0-16.0); White Blood Count 5.3 X10*3/uL (4.8-10.8)
[2024-05-28 11:25] LABS: Alanine Aminotransferase 27 U/L (0-40); Albumin Level 4.3 g/dL (3.5-5.0); Alkaline Phosphatase 86 U/L (39-117); Anion Gap 15 (12-20); Aspartate Amino Transferase 26 U/L (5-37); Bilirubin Direct 0.2 mg/dL (0.0-0.5); Bilirubin Total 0.6 mg/dL (0.0-1.0); Blood Urea Nitrogen 15 mg/dL (9-16); Calcium 10.8 mg/dL (8.4-10.2); Carbon Dioxide 27 mmol/L (22-29); Chloride 100 mmol/L (96-108); Estimated Glomerular Filt Rate > 60; Glucose Random 87 mg/dL (60-115); Potassium 4.5 mmol/L (3.3-5.1); Sodium 137 mmol/L (135-145); Total Protein 7.3 g/dL (6.5-8.0)
== END 2024-05-28 06:10 | disposition home or self-care (01) ==
LOC: HO.HMGCLDS 06:09
PROVIDERS: PCP Internal Medicine; Visit Provider Internal Medicine
DX: Z00.00 Encounter for general adult medical examination without abnormal findings (principal); I10 Essential (primary) hypertension
CPT/HCPCS: 36415; 80053; 82248; 85025

== ENCOUNTER → 2024-09-16 09:55 | Outpatient (AMB) | payer BC, SELFPAY ==
--- NOTE | 2024-09-16 10:10 | A.OFFPC_ITS ---
Intake Visit Reasons: 6 month follow up Intake Note: Telehealth visit. To discuss his chronic medications. Allergies penicillin V Allergy (Unknown, Verified 09/16/24 10:22) unknown amlodipine Allergy (Verified 09/16/24 10:22) Dizziness lisinopril Allergy (Verified 09/16/24 10:22) Photosensitivity metoprolol Allergy (Verified 09/16/24 10:22) Rash adhesive Allergy (Unknown, Uncoded 09/16/24 10:22) rash LATEX Allergy (Unknown, Uncoded 09/16/24 10:22) severe rash Medication List - Last Reconciled 09/16/24 by Logan Bailey MD albuterol sulfate 90 mcg/actuation (ProAir HFA) 2 puffs inhalation Q4-6H PRN allopurinol 150 mg PO DAILY atorvastatin 10 mg PO DAILY brimonidine 0.15% 1 drp ophthalmic (eye) BID hydrochlorothiazide 25 mg PO DAILY ibuprofen 800 mg PO BID PRN latanoprost 0.005% 1 drp ophthalmic (eye) BEDTIME losartan 100 mg PO DAILY mometasone-formoterol 100-5 mcg/actuation (Dulera) 2 puffs inhalation DAILY montelukast 10 mg PO DAILY oxycodone-acetaminophen 5-325 mg 1 tab PO Q12H PRN verapamil ER 180 mg PO DAILY HPI 6 month follow up HPI Details 63-year-old male wishes to discuss his [facility] health via tele health. Last week patient had [facility] He has been in a lot of pain due to his back. Currently taking oxycodone prescribed from the spine clinic. Since surgery he has been feeling a little better. Compliant with medications. He is able to ambulate and do activities of personal living independently. FORMERLY [facility], [facility] Medical History (Updated 09/16/24 @ 10:27 by Logan Bailey MD) Acute biliary pancreatitis Epididymitis Anxiety Eczema Fatty liver Elevated LFTs Osteoarthritis Gout Elevated cholesterol COPD (chronic obstructive pulmonary disease) Asthma MIGUEL on CPAP Obesity (BMI 30.0-34.9) CPAP (continuous positive airway pressure) dependence Obstructive sleep apnea Primary osteoarthritis of right shoulder Rotator cuff impingement syndrome of right shoulder Primary osteoarthritis of right knee Varicose vein of leg Hypertension Surgical History Hx of umbilical hernia repair H/O colonoscopy Hx of inguinal hernia repair Hx of cholecystectomy Family History Mother No problems noted. Father No problems noted. 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 (Primary Care) Tobacco/Smoking Status: Tobacco use Status Patient Tobacco Use Status Former Tobacco user 08/30/23 10:11 Telehealth Telehealth Telehealth Platform: [employer] Location of provider rendering services: practice address Location of patient: address on file Patient Identification confirmed using: Name, : Yes Telehealth method: voice only Patient verbally consented to treatment: Yes Patient verbally consented to billing insurance company: Yes Patient informed of any privacy concerns related to visit: Yes Minutes spent on Phone/Video with Pt.: 15 Coding Level of Care Code Tele New Pt Level 4 (47288) Complex EM visit Add On G2211 Diagnoses Vertebrogenic low back pain M54.51 COPD (chronic obstructive pulmonary disease) J44.9 MIGUEL on CPAP G47.33; Z99.89 Hypertension I10 Assessment & Plan Assessment & Plan (1) Vertebrogenic low back pain: Code(s): M54.51 - Vertebrogenic low back pain Category: Medical Plan: Follow-up as per the orthopedic surgeons. (2) COPD (chronic obstructive pulmonary disease): Comment: THIS GENTLEMAN HAS LONG-STANDING HISTORY OF BRONCHIAL ASTHMA, WHICH HAS NOW PHASED INTO COPD. HE IS A NONSMOKER BUT HAS BEEN EXPOSED TO SECOND HAND SMOKING. CURRENTLY IT IS WELL CONTROLLED , HE IS USING DULERA 2 PUFFS USUALLY IN THE MORNING. AND HARDLY NEEDS TO USE THE RESCUE INHALER. REGIMEN IS WORKING WELL AND HIS BREATHING HAS ACTUALLY IMPROVED. Code(s): J44.9 - Chronic obstructive pulmonary disease, unspecified Category: Medical Plan: As above. (3) MIGUEL on CPAP: Comment: He is a known case of obstructive sleep apnea and is well treated with the use of CPAP. He is very compliant and benefitting. Code(s): G47.33 - Obstructive sleep apnea (adult) (pediatric); Z99.89 - Dependence on other enabling machines and devices Category: Medical Plan: As above (4) Hypertension: Code(s): I10 - Essential (primary) hypertension Category: Medical Plan: Continue current medications. We will check blood pressure in the next office visit. Medications: Discontinued cyclobenzaprine Discontinued Reason: Doctor's Order 5 mg PO Q8H PRN 14 tabs 0RF pain (scale score 7-10) 5 days tramadol Discontinued Reason: Doctor's Order 50 mg PO BID PRN 60 tabs 0RF pain
--- OUTSIDE RECORDS SUMMARY | 2024-09-16 11:04 | XMS_ITS ---
Author Organization Luis Eduardo Greer DO, FACP Address [address], [place] [id number] Care Team Providers Care Overlay Plastician Name Role Phone Luis Eduardo Greer Primary Care Provider ALLERGIES Allergen (clinical drug ingredient) Drug/Non Drug Allergy documented on EMR Reaction Allergy Type Onset Date Status amlodipine Amlodipine Besylate dizziness Drug Allergy Active Penicillin hives in childhood Drug Allergy Active Metoprolol Succinate rash Drug Allergy Active lisinopril Lisinopril cough, photosensitivity rash Drug Allergy Active REASON FOR VISIT Follow up hypertension, hypercholesterolemia MEDICATIONS Medication SIG (Take, Route, Frequency, Duration) Notes Start Date End Date Status Losartan Potassium 100 MG 1 tablet Orall y Once a day Active IBU 800 MG 1 tablet with food o r milk as needed Orally Three times a day Active Verapamil HCl ER 180 MG 1 tablet Orally Once a day Active oxyCODONE-Acetaminophen 5-32 5 MG 1 tablet as needed Orally Twice a day Active Brimonidine Tartrate 0.15 % 1 drop into affected eye Ophthalmic Twice a day Active Montelukast Sodium 10 MG 1 tablet Orally Once a day Active Dulera 100-5 MCG/ACT 2 puffs Inhalation Once a day Active Allopurinol 300 MG 1 tablet Orally Once a day Active Albuterol Sulfate HFA 108 (9 0 Base) MCG/ACT 2 puffs as needed Inhalation every 4 hrs Active Latanoprost 0.005 % 1 drop into affected eye in the evening Ophthalmic Once a day Active hydroCHLOROthiazide 25 MG 1 tablet in th e morning Orally Once a day Active Atorvastatin Calcium 10 MG 1 tablet Oral ly Once a day Active SOCIAL HISTORY Tobacco Use: Social History Observation Description Date Details (start date - stop date) Former Smoker NA - NA Sex Assigned At : Social History Observation Description Sex Assigned At Unknown Tobacco Use/Smoking Question Answer Notes Patient is a former smoker How long has it been since y ou last smoked? > 10 years Additional Findings: Tobacco Non-User Fo rmer smoker, currently using no form of tobacco Alcohol Screen Question Answer Notes Did you have a drink contain ing alcohol in the past year? Yes How often did you have a dri nk containing alcohol in the past year? 2 to 3 times a week (3 points) How many drinks did you have on a typical day when you were drinking in the past year? 1 or 2 drinks (0 point) How often did you have 6 or more drinks on one occasion in the past year? Never (0 point) Points 3 Interpretation Negative VITAL SIGNS BMI 31.76 kg/m2 05/30/2024 Blood pressure systolic 128 mm Hg 05/30/20 24 Blood pressure diastolic 70 mm Hg 024 Height 68.50 in 05/30/2024 Weight 212 lbs 05/30/2024 Encounters Encounter Location Date Provider Diagnosis Luis Eduardo Greer DO, [address] [phone] 05/30/2024 Luis Eduardo Greer Essential hypertensi on I10 ; Hypercholesterolemia E78.00 ; Mild persistent asthma without complication J45.30 ; Obstructive sleep apnea (adult) (pediatric) G47.33 and Lumbar back pain M54.50 ASSESSMENTS Encounter Date Diagnosis Assessment Notes Treatment Notes Treatment Clinical Notes 05/30/2024 Essential hypertensi on (ICD-10 - I10) 05/30/2024 Hypercholesterolemia (ICD-10 - E78.00) 05/30/2024 Mild persistent asth ma without complication (ICD-10 - J45.30) 05/30/2024 Obstructive sleep ap gar[place] (adult) (pediatric) (ICD-10 - G47.33) Nightly CPAP 05/30/2024 Lumbar back pain (IC D-10 - M54.50) Follow up with [facility] PLAN OF TREATMENT Medication Medication Name Sig Start Date Stop Date Notes Losartan Potassium 100 MG 1 tablet Orall y Once a day IBU 800 MG 1 tablet with food o r milk as needed Orally Three times a day Verapamil HCl ER 180 MG 1 tablet Orally Once a day oxyCODONE-Acetaminophen 5-325 MG 1 table t as needed Orally Twice a day Brimonidine Tartrate 0.15 % 1 drop into affected eye Ophthalmic Twice a day Montelukast Sodium 10 MG 1 tablet Orally Once a day Dulera 100-5 MCG/ACT 2 puffs Inhalation Once a day Allopurinol 300 MG 1 tablet Orally Once a day Albuterol Sulfate HFA 108 (9 0 Base) MCG/ACT 2 puffs as needed Inhalation every 4 hrs Latanoprost 0.005 % 1 drop into affected eye in the evening Ophthalmic Once a day hydroCHLOROthiazide 25 MG 1 tablet in th e morning Orally Once a day Atorvastatin Calcium 10 MG 1 tablet Oral ly Once a day Treatment Notes Assessment Notes Obstructive sleep apnea (adult) (pediatr ic) Nightly CPAP Lumbar back pain Follow up with [facility] Pending Test Test Name Order Date CBC w DIFF 05/30/2024 LIPOPROTEIN FRACTIONATION (LIPID PANEL) 05/30/2024 PROFILE, FASTING 05/30/2024 TSH (THYROID STIMULATING HORMONE) 2023 VITAMIN D 25-OH TOTAL 05/30/2024 Uric Acid 05/30/2024 PTHI 05/30/2024 Progress Notes * Examination Category Sub-Category Detail Notes General Examination GENERAL APPEARANCE: in no ac sleetmute distress, well developed, well nourished LUNGS: breathing comfortabl y at rest MUSCULOSKELETAL: PSYCH: alert, oriented, cog nitive function intact History and Physical Notes * HPI (History of Present Illness) Category Sub-Category Detail Notes New symptom(s) Telehealth Location of provider:: Pro mcgowanr's home address Location of patient:: Address listed in demographics for today's visit Patient identification confirmed using:: Name, Telehealth method:: Video co nference where patient is visible to the provider of care Consent:: Patient verbally c onsented to treatment, Patient verbally consented to billing insurance company, Patient informed of any privacy concerns related to method of visit Total time spent with patient (mins): 25 Disclaimer: This Telehealth visit is being conducted per CDC recommendations due to the COVID-19 outbreak.
--- OUTSIDE RECORDS SUMMARY | 2024-09-16 11:04 | XMS_ITS ---
Author Organization Luis Eduardo Greer DO [facility] Address [address] [place], [place] [id number] Care Team Providers Care Maternal Fetal Physician Name Role Phone Luis Eduardo Greer Primary Care Provider [phone] REASON FOR VISIT Refills MEDICATIONS Medication SIG (Take, Route, Fr equency, Duration) Notes Start Date End Date Status Ibuprofen 800 MG 1 tablet with food o r milk as needed Orally Three times a day for 30 days Active Encounters Encounter Location Date Provider Diagnosis Luis Eduardo Greer DO, FACP [address] [place] [phone] 06/23/2024 Luis Eduardo Greer PLAN OF TREATMENT Medication Medication Name Sig Start Date Stop Date Notes Ibuprofen 800 MG 1 tablet with food o r milk as needed Orally Three times a day for 30 days
--- OUTSIDE RECORDS SUMMARY | 2024-09-16 11:04 | XMS_ITS ---
Author Organization Luis Eduardo Greer DO, [facility] Address [address], [place] [id number] Care Team Providers Care Geology Scientist Name Role Phone Luis Eduardo Greer Primary Care Provider [phone] REASON FOR VISIT 6 month f/u Encounters Encounter Location Date Provider Diagnosis Luis Eduardo Greer DO, FACP [address] [place] [phone] 09/16/2024 Luis Eduardo Greer PLAN OF TREATMENT No Information
== END ==
LOC: HO.HMCSH 09:55
PROVIDERS: PCP Internal Medicine; Visit Provider Internal Medicine
DX: M54.51 Vertebrogenic low back pain (principal); J44.9 Chronic obstructive pulmonary disease, unspecified; G47.33 Obstructive sleep apnea (adult) (pediatric); Z99.89 Dependence on other enabling machines and devices; I10 Essential (primary) hypertension

== ENCOUNTER → 2024-09-16 09:55 | Outpatient (BNVA) | payer BC, SELFPAY | PROVIDERS: PCP Internal Medicine; Visit Provider Internal Medicine ==

== ENCOUNTER 2025-03-11 06:10 | Outpatient (REF) | payer BC, SELFPAY ==
[2025-03-11 10:07] LABS: MANUAL DIFF FLAG NO
[2025-03-11 10:17] LABS: Hematocrit 37.4 % (42.0-52.0); Hemoglobin 13.1 g/dl (14.0-18.0); Imm Gran Abs Auto 0.03 X10*3/uL (0.00-0.03); Imm Gran Pct Auto 0.5 % (0.0-0.4); Lymphocytes Absolute Auto 1.5 X10*3/uL (1.2-4.9); Mean Corpuscular HGB Conc 35.0 g/dl (31.0-36.0); Mean Corpuscular Hemoglobin 32.7 pg (27.0-33.0); Mean Corpuscular Volume 93.3 fL (80.0-98.0); NRBC Abs Auto 0.000 X10*3/uL (0.0-0.012); NRBC Pct Auto 0.0 /100WBC (0.0-0.2); Platelet Count 348 X10*3/uL (160-400); Red Blood Count 4.01 X10*6/uL (4.60-5.80); White Blood Count 5.7 X10*3/uL (4.8-10.8)
[2025-03-11 10:52] LABS: Alanine Aminotransferase 28 U/L (0-40); Albumin Level 4.6 g/dL (3.5-5.0); Alkaline Phosphatase 103 U/L (39-117); Anion Gap 15 (12-20); Aspartate Amino Transferase 27 U/L (5-37); Blood Urea Nitrogen 10 mg/dL (9-16); Calcium 10.3 mg/dL (8.4-10.2); Carbon Dioxide 26 mmol/L (22-29); Chloride 96 mmol/L (96-108); Cholesterol 203 mg/dL (<200); Estimated Glomerular Filt Rate > 60; HDL Cholesterol 101 mg/dL (>40); Potassium 3.9 mmol/L (3.3-5.1); Sodium 133 mmol/L (135-145); Total Protein 7.8 g/dL (6.5-8.0); Triglycerides 77 mg/dL (<150); Uric Acid 3.3 mg/dL (3.4-7.0)
[2025-03-11 11:10] LABS: Thyroid Stimulating Hormone 1.20 uIU/mL (0.32-4.0)
[2025-03-11 11:31] LABS: Parathyroid Hormone Intact 49.5 pg/mL (8.7-77.1)
== END 2025-03-11 06:11 | disposition home or self-care (01) ==
LOC: HO.HMGCLDS 06:10
PROVIDERS: PCP Internal Medicine; Visit Provider Internal Medicine
DX: I10 Essential (primary) hypertension (principal); G47.33 Obstructive sleep apnea (adult) (pediatric); J45.30 Mild persistent asthma, uncomplicated; E78.00 Pure hypercholesterolemia, unspecified; M54.50 Low back pain, unspecified
CPT/HCPCS: 36415; 80053; 80061; 82306; 83970; 84443; 84550; 85025

== ENCOUNTER 2025-05-04 09:04 | Outpatient (AMB) | payer BC, SELFPAY ==
--- NOTE | 2025-05-04 09:07 | A.OFFPC_ITS ---
Intake Visit Reasons: follow up - see comments Trade Manager Required: No Allergies penicillin V Allergy (Unknown, Verified 05/04/25 09:09) unknown amlodipine Allergy (Verified 05/04/25 09:09) Dizziness lisinopril Allergy (Verified 05/04/25 09:09) Photosensitivity metoprolol Allergy (Verified 05/04/25 09:09) Rash adhesive Allergy (Unknown, Uncoded 05/04/25 09:09) rash LATEX Allergy (Unknown, Uncoded 05/04/25 09:09) severe rash Tobacco use date assessed: 05/04/25 [facility] Medical History Acute biliary pancreatitis Epididymitis Anxiety Eczema Fatty liver Elevated LFTs Osteoarthritis Gout Elevated cholesterol COPD (chronic obstructive pulmonary disease) Asthma MIGUEL on CPAP Obesity (BMI 30.0-34.9) CPAP (continuous positive airway pressure) dependence Obstructive sleep apnea Primary osteoarthritis of right shoulder Rotator cuff impingement syndrome of right shoulder Primary osteoarthritis of right knee Varicose vein of leg Hypertension Surgical History Hx of umbilical hernia repair H/O colonoscopy (~10/23/14) Hx of inguinal hernia repair Hx of cholecystectomy Family History Mother No problems noted. Father No problems noted. Social History Are you a primary sub acute care nurse to a significant other at home: No Do you presently have visiting nurse or other home services: No Patient Tobacco Use Status: Former Tobacco user Current occupational status: employed Current occupation: [employer] Maker Hand Questionnaire PHQ-9 Over the last 2 weeks, how often have you been bothered by any of the following problems? 1. Little interest or pleasure in doing things: not at all 2. Feeling down, depressed, or hopeless: not at all 3. Trouble falling or staying asleep, or sleeping too much: not at all 4. Feeling tired or having little energy: not at all 5. Poor appetite or overeating: not at all 6. Feeling bad about yourself - or that you are a failure or have let yourself or your family down: not at all 7. Trouble concentrating on things, such as reading the newspaper or watching television: not at all 8. Moving or speaking so slowly that other people could have noticed. Or the opposite - being so fidgety or restless that you have been moving around a lot more than usual: not at all 9. Thoughts that you would be better off or of hurting yourself in some way: not at all Total score: 0 Source: Developed by Drs. Luis Eduardo Bartlett, Tiffany Mccall, Balta Coreas and colleagues, with an educational jose alfredo from [employer]. RUBY-7 AMB Questionnaire RUBY-7 Date RUBY - 7 assessed: 05/04/25 Feeling nervous, anxious, or on edge: 0 = Not at all Not being able to stop or control worryin = Not at all Worrying too much about different things: 0 = Not at all Trouble relaxin = Not at all Being so restless that it is hard to sit still: 0 = Not at all Becoming easily annoyed or irritable: 0 = Not at all Feeling afraid as if something awful might happen: 0 = Not at all Total RUBY-7 score (0-4 normal; 5-9 mild; 10-14 moderate; 15-21 severe): 0 Source: Developed by Drs. Luis Eduardo Bartlett, Tiffany Mccall, Balta Coreas and colleagues, with an educational jose alfredo from [employer]. Physical exam (Primary Care) Tobacco/Smoking Status: Tobacco use Status Tobacco use date assessed 05/04/25 05/04/25 09:12 Patient Tobacco Use Status Former Tobacco user 05/04/25 09:12 PHQ-9: PHQ-9 Score PHQ-9: Total score 0 05/04/25 09:29 Telehealth Telehealth Telehealth Platform: Telephone Location of provider rendering services: practice address Location of patient: address on file Patient Identification confirmed using: Name, : Yes Telehealth method: voice only Patient verbally consented to treatment: Yes Patient verbally consented to billing insurance company: Yes Patient informed of any privacy concerns related to visit: Yes Minutes spent on Phone/Video with Pt.: 15 Coding Level of Care Code Tele Est Pt Level 4 (65614) Complex EM visit Add On G2211 Diagnoses Lumbago M54.50 Assessment & Plan Assessment & Plan (1) Lumbago: Code(s): M54.50 - Low back pain, unspecified Category: Medical Plan: History of Present Illness - The patient is a 64-year-old male presenting with chronic back pain. - The patient has a history of back pain requiring surgical intervention, with a planned follow-up MRI and potential surgery. - Current medications include an inhaler, allopurinol, a statin, hydrochlorothiazide, ibuprofen, oxycodone, Singulair, losartan, and verapamil. - Blood work from March was normal, including cholesterol levels. - The patient reports a weight of 206 pounds, a decrease from previous measurements. - The last prostate exam was conducted on October 28, with no current urinary symptoms reported. Social History Review of Systems - Genitourinary: Denies dysuria or urinary frequency. Neurology: Patient oriented x3 Results - Labs: Blood work from March was normal, including cholesterol levels. Plan - Continue current medications as prescribed, including inhaler, allopurinol, statin, hydrochlorothiazide, ibuprofen, oxycodone, Singulair, losartan, and verapamil. - Schedule follow-up MRI for back pain assessment and potential surgical consultation with Dr. Montenegro. - Plan for prostate cancer screening during the next visit. Discussion Notes During the visit, I confirmed the patient's medication regimen and discussed the upcoming MRI and potential surgery for his back pain. We also reviewed his recent blood work, which was normal, and planned for a prostate cancer screening at the next visit. Patient Instructions - Continue taking all prescribed medications as directed. - Attend the scheduled MRI appointment for back pain evaluation. - Plan for a prostate cancer screening during the next visit.
--- OUTSIDE RECORDS SUMMARY | 2025-05-04 09:40 | XMS_ITS | Clinical Summary ---
Author Organization [facility] Address [address] [place] [phone] Phone Care Team Providers Care Photographer News Name Role Phone Luis Eduardo Greer DO Primary Care Provider + [phone] Medications allopurinol (ZYLOPRIM) 300 MG tablet 09/07/2023 Active atorvastatin (LIPITOR) 10 MG tablet 10/01/2023 Active cyclobenzaprine (FLEXERIL) 5 MG tablet 09/20/2023 Active hydroCHLOROthiazid e (HYDRODIURIL) 25 MG tablet 10/01/2023 Active ibuprofen (ADVIL,MOTRIN) 800 MG tablet 07/16/2023 Active losartan (COZAAR) 100 MG tablet 10/01/2023 Activ e Active Problems No known active problems Social History Tobacco Use Types Packs/Day Years Used Date Smoking Tobacco: Never Assessed Education Answer Date Recorded Are you interested in more education? Not on dane e 10/03/2023 Are you concerned about learning? Not on file 10/03/2023 No 10/03/2023 No 10/03/2023 Digital Access Answer Date Recorded No 10/03/2023 No 10/03/2023 Reliable internet access at home? Not on file 10/03/2023 Device with a working camera? Not on file Sex and Gender Information Value Date Recorded Sex Assigned at Not on file Legal Sex Male 8:13 AM EST Gender Identity Not on file Sexual Orientation Not on file Plan of Treatment Health Maintenance Due Date Last Done Comments Adult Td,Tdap Booster 1961 CREATININE LEVEL 1961 LIPID PANEL 1961 POTASSIUM LEVEL 1961 DEPRESSION SCREENING 1973 SMOKING Hx and SMOKELESS TOBACCO SCREENING 1974 HEPATITIS C SCREENING 11/01/1979 HIV ONE-TIME SCREENING (18-65 YEARS) 11/01/1979 COLOGUARD 2006 COLONOSCOPY 2006 COLORECTAL CANCER SCREENING 2006 FIT TEST 2006 FOBT 2006 SIGMOIDOSCOPY 2006 VIRTUAL COLONOSCOPY 2006 ZOSTER VACCINES (1 of 2) 11/01/2011 PNEUMOCOCCAL VACCINES (50+ years) (2 of 2 - PCV) 05/02/2019 05/02/2018 INFLUENZA VACCINE (#1) 2025 , 08/19/2021, 05/09/2020, Additional history exists COVID-19 VACCINE (2024- season) 2025 05/06/2022, 07/18/2021, 12/20/2020, Additional history exists RSV VACCINE (1 - 1-dose 75+ series) 2036 HEPATITIS A VACCINES Aged Out No long er eligible based on patient's age to complete this topic HIB VACCINES Aged Out No longer eligi ble based on patient's age to complete this topic MENINGOCOCCAL VACCINES (ACWY) Aged Out No longer eligible based on patient's age to complete this topic MENINGOCOCCAL VACCINES (B) Aged Out N o longer eligible based on patient's age to complete this topic Medical Devices Not on file Insurance [place] [address] [place] [address] [address] [address] [place] [address] [address] [place] [address] [place] [address] [place] [address] PPO EPO [facility] [[email or web address] PPO EPO Care Teams Photographer News Relationship Specialty Start Date End Date Luis Eduardo Greer DO [address] [place] [phone] PCP - General Internal Medicine 10/03/23 Additional Source Comments The information contained in this document represents components of the legal health record. It is not the complete legal health record.[facility]
== END 2025-05-04 10:00 | disposition home or self-care (01) ==
LOC: HO.HMCSH 09:04
PROVIDERS: PCP Internal Medicine; Visit Provider Internal Medicine
DX: M54.50 Low back pain, unspecified (principal)

== ENCOUNTER 2025-06-04 10:53 | Outpatient (REF) | payer BC, SELFPAY ==
--- OUTSIDE RECORDS SUMMARY | 2025-06-04 13:36 | XMS_ITS | Clinical Summary ---
Author Organization [facility] Address [address] [place] [phone] Phone Care Team Providers Care Sprinkler Repair Technician Name Role Phone Luis Eduardo Greer DO Primary Care Provider + [phone] Medications allopurinol (ZYLOPRIM) 300 MG tablet 09/07/2023 [...] Devices Not on file Insurance [place] [address] [place] [address] [address] [address] [place] [address] [address] [place] [address] [place] [address] [place] [address] PPO EPO [facility] PPO EPO Care Teams Sprinkler Repair Technician Relationship Specialty Start Date End Date Luis Eduardo Greer DO [address] [place] [phone] PCP - General Internal Medicine 10/03/23 Additional Source Comments The information contained in this document represents components of the legal health record. It is not the complete legal health record[facility]
== END 2025-06-04 10:54 | disposition home or self-care (01) ==
LOC: HO.HMGCLDS 10:53
PROVIDERS: PCP Internal Medicine
DX: E55.9 Vitamin D deficiency, unspecified (principal)
CPT/HCPCS: 36415; 82306

== ENCOUNTER 2025-07-17 11:13 | Outpatient (AMB) | payer BC, SELFPAY ==
--- NOTE | 2025-07-17 11:18 | MHC.PC.OV ---
Intake Visit Reasons: TCM Disharged from [facility] Intake Note: Visit Reason: TCM Intake Note: Patient is here for hospital discharge follow up. Patient was discharged from [facility] then [facility] Change Of Address Clerk Required: No Mathematics Instructor: Not Required per policy Accompanied by: Self / Same As Patient Allergies penicillin V Allergy (Unknown, Verified 07/17/25 11:24) unknown amlodipine Allergy (Verified 07/17/25 11:24) Dizziness lisinopril Allergy (Verified 07/17/25 11:24) Photosensitivity metoprolol Allergy (Verified 07/17/25 11:24) Rash adhesive Allergy (Unknown, Uncoded 07/17/25 11:24) rash LATEX Allergy (Unknown, Uncoded 07/17/25 11:24) severe rash Medication List - Last Reconciled 07/17/25 by Martha Bonds PA-C albuterol sulfate 90 mcg/actuation (ProAir HFA) 2 puffs inhalation Q4-6H PRN allopurinol 150 mg (1/2 x 300 mg) PO DAILY atorvastatin 10 mg PO DAILY brimonidine 0.15% 1 drp ophthalmic (eye) BID hydrochlorothiazide 25 mg PO DAILY ibuprofen 800 mg PO BID PRN latanoprost 0.005% 1 drp ophthalmic (eye) BEDTIME losartan 100 mg PO DAILY mometasone-formoterol 100-5 mcg/actuation (Dulera) 2 puffs inhalation DAILY montelukast 10 mg PO DAILY oxycodone-acetaminophen 5-325 mg 1 tab PO Q12H PRN verapamil ER 180 mg PO DAILY Tobacco use date assessed: 05/04/25 HPI HPI Comments History of Present Illness Details Patient presents to the office for a TCM visit. Date of admission: [facility] - 06/13/2025; [facility] 06/24/2025 Date of discharge:[facility] - 06/24/25; [facility] 07/10/25 This is a Follow-up from admission at [facility] and [facility] rehab HPI/hospital course/discharge summary: 64-year-old male presenting for a post hospitalization and rehab discharge follow-up. 64-year-old male with a history of hypertension, gout, hyperlipidemia, chronic back pain and fatty liver disease. He also has a history of lumbar disc herniation underwent recent spinal surgery for L5-S1 septic diskitis osteomyelitis and epidural abscess. The patient presented to [facility] on 06/13/2025 after being referred by his primary orthopedic physician due to MRI findings suggesting possible infection in preparation for scheduled spinal surgery. He underwent L4-S1 posterior instrumented spinal fusion with L5-S1 lumpectomy on 06/16/2025 with intraoperative cultures confirming septic Diskus, osteomyelitis and epidural abscess. 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 He received 1 pack of red blood cells on 06/20/2025 per postoperatively drop in hemoglobin and had a PICC line placed in his right arm on 06/21/2025 for long-term antibiotic therapy. He will have 6 weeks of cefazolin through 07/25/2025 for treatment of osteomyelitis and diskitis. Then he was discharged from [facility] Following his discharge from [facility], he was transferred to [facility] for rehabilitation and was subsequently discharged from there on July 10. He is currently receiving treatment with cefazolin antibiotic, with the course duration dependent on pending blood work results intended to monitor inflammation levels. The patient has a blood clot filter in his legs as well currently being followed by vascular surgery and has a follow-up on the of this month. His current medications include albuterol, allopurinol, amlodipine, atorvastatin, brimonidine eye drops, fluticasone nasal spray (used seasonally), folic acid, furosemide, hydralazine, latanoprost eye drops, losartan, magnesium, melatonin, pantoprazole, potassium chloride, thiamine, verapamil, vitamin B6, carbamazepine (muscle relaxer), oxycodone, and Tylenol. He also has a topical ketoconazole cream for eczema, which he is not currently using. Discharged to/Current Location: Osteomyelitis of spine Lives with: Diagnosis: Osteomyelitis Procedures performed: See above New medications:Cefazolin 2g q8h Discontinued medications: None Change medications/dosing: None Pending labs: Patient has pending labs they did not send me the records will attempt to obtain or will ensure that they send it to us once they are resulted Maybe resulted on Sunday next Pending diagnostic test: No pending diagnostic test at this time Any Follow-up Labs required? Patient will have follow-up labs by his surgeon most likely inflammatory markers to ensure that the infection is improving Any Follow-up Diagnostic test required? No pending or follow-up diagnostic test required at this time from PCP stand point How are you feeling? Healing pain and some pain in muscles will speak to Vascular about that due to filter in place still after vein procedure Are you in any pain or discomfort? Patient reports he does have some pain although managing with the medications he is on Do you have any questions about your condition or discharge instructions? Not at this time Were you able to get your medications filled? Yes he was Do you have any questions about your medications? None at this time Any referrals required? None at this time Were you able to schedule your follow-up appointment? Yes he has and attending appointments If home health was ordered, have they contact you? Any outpatient services, if so, are you scheduled? Are there any additional resources like transportation you might need during her recovery? - VNA? Yes ONCE WEEKLY - PT/OT- once weekly - FLOOR TILING PROFESSIONAL? not interested - Meals on wheels? not interested Educational need/resources: What support system do you have? PFSH Medical History (Updated 07/17/25 @ 13:20 by Martha Bonds PA-C) Muscle pain Osteomyelitis of spine Hospital discharge follow-up Acute biliary pancreatitis Epididymitis Anxiety Eczema Fatty liver Elevated LFTs Osteoarthritis Gout Elevated cholesterol COPD (chronic obstructive pulmonary disease) Asthma MIGUEL on CPAP Obesity (BMI 30.0-34.9) CPAP (continuous positive airway pressure) dependence Obstructive sleep apnea Primary osteoarthritis of right shoulder Rotator cuff impingement syndrome of right shoulder Primary osteoarthritis of right knee Varicose vein of leg Hypertension Surgical History Hx of umbilical hernia repair H/O colonoscopy (~10/23/14) Hx of inguinal hernia repair Hx of cholecystectomy Family History Mother No problems noted. Father No problems noted. Social History Are you a primary careers adviser to a significant other at home: No Do you presently have visiting nurse or other home services: No Patient Tobacco Use Status: Former Tobacco user Current occupational status: employed Current occupation: [employer] Author Questionnaire RUBY-7 AMB Questionnaire RUBY-7 Date RUBY - 7 assessed: 05/04/25 Source: Developed by Drs. Luis Eduardo L. DhruvTiffany welch Kurt Kroenke and colleagues, with an educational jose alfredo from [employer]. Review of Systems Narrative Review of Systems - Musculoskeletal: Reports ongoing pain and an unspecified issue with the muscles in his legs. Const Details: - Musculoskeletal: Reports ongoing pain and an unspecified issue with the muscles in his legs. All systems reviewed & are unremarkable except as noted in HPI and below Physical exam (Primary Care) Tobacco/Smoking Status: Tobacco use Status Tobacco use date assessed 05/04/25 05/04/25 09:12 Patient Tobacco Use Status Former Tobacco user 05/04/25 09:12 Telehealth Telehealth Telehealth Platform: Telephone Location of provider rendering services: practice address Location of patient: address on file Patient Identification confirmed using: Name, : Yes Telehealth method: voice only Patient verbally consented to treatment: Yes Patient verbally consented to billing insurance company: Yes Patient informed of any privacy concerns related to visit: Yes Minutes spent on Phone/Video with Pt.: 60 Results Reviewed Results Reviewed: - Labs: Blood work was drawn on to monitor inflammation levels and determine the duration of antibiotic therapy; results are pending. Coding Level of Care Code Tele Est Pt Level 4 (63336) Add On Problem Visit Only Diagnoses Hospital discharge follow-up Z51.89 Osteomyelitis of spine M46.20 Muscle pain M79.10 Time Spent (min) 60 Assessment & Plan Assessment & Plan (1) Hospital discharge follow-up: Code(s): Z51.89 - Encounter for other specified aftercare Category: Medical (2) Osteomyelitis of spine: Code(s): M46.20 - Osteomyelitis of vertebra, site unspecified Category: Medical Plan: An attempt will be made to obtain the recent blood work results, which are crucial for determining the ongoing need for antibiotic therapy. The patient's will attempt to email the results if she can access them. The patient will reduce his oxycodone dose from 10 mg to 5 mg, depending on his pain levels. The patient will follow up with vascular on 07/20. (3) Muscle pain: Code(s): M79.10 - Myalgia, unspecified site Category: Medical Plan: The patient plans to discuss the muscle issues in his legs with the vascular specialist and his surgeon, Dr. Tompkins, to understand the cause. Plan Plan Patient was informed and verbally consented to the use of an ambient scribe for clinic note documentation during this visit. 1. Osteomyelitis Of The Spine An attempt will be made to obtain the recent blood work results, which are crucial for determining the ongoing need for antibiotic therapy. The patient's will attempt to email the results if she can access them. The patient will reduce his oxycodone dose from 10 mg to 5 mg, depending on his pain levels. The patient will follow up with vascular on 07/20. 2. Muscle Pain The patient plans to discuss the muscle issues in his legs with the vascular specialist and his surgeon, Dr. Tompkins, to understand the cause. I conducted a telephone follow-up visit with the patient and his regarding his recent discharge from the hospital and rehab for osteomyelitis of the spine. We reviewed his medication list and confirmed he is taking most of his prescribed medications. The main concern discussed was obtaining the results of his recent blood work, which will determine the duration of his antibiotic treatment. I provided my email address for his to send the results if she is able to access them, and I will also have my MA attempt to locate them. We confirmed that he has home health services, including a visiting nurse, PT, and OT, and that he has a follow-up appointment with vascular scheduled. The patient and his stated they have no further questions at this time. Patient Instructions: - Continue your current medications as prescribed. - Please try to send your recent blood work results to the email address provided ([email or web address]) so we can review them. - Your dose of oxycodone may be reduced from 10 mg to 5 mg depending on your pain. - Keep your follow-up appointment with the vascular specialist on July 20. - Continue with your home services, including the visiting nurse, physical therapy, and occupational therapy. - Contact our office if you need anything.
== END 2025-07-17 11:53 | disposition home or self-care (01) ==
LOC: HO.HMCSH 11:13
PROVIDERS: PCP Physician Assistant Medical; Visit Provider Physician Assistant Medical
DX: M46.20 Osteomyelitis of vertebra, site unspecified (principal); M79.18 Myalgia, other site